=== PATIENT | female | born 1960 | race Caucasian/White ===

== ENCOUNTER 2025-02-06 13:54 | Outpatient (CLI) | payer MEDICARE, OTHER, SELFPAY | END 2025-02-06 13:55 | disposition home or self-care (01) | PROVIDERS: Visit Provider Physician Assistant Surgical | DX: R11.2 Nausea with vomiting, unspecified (principal); R68.89 Other general symptoms and signs; R19.7 Diarrhea, unspecified | CPT/HCPCS: 80076; 82150; 83690 ==

== ENCOUNTER 2025-02-09 18:00 | Emergency (ER) | payer MEDICARE, OTHER, SELFPAY ==
[2025-02-09] VITALS (8 sets, daily range): BP systolic 119–142; BP diastolic 45–79; PULSE 90–100; RESP 14–18; TEMP 36.7; O2SAT 88–93; BMI 26.6
--- OUTSIDE RECORDS SUMMARY | 2025-02-09 18:03 | XMS_ITS | Clinical Summary ---
Author Organization [email or web address] [facility] Address [address] [place] [address] Care Team Providers Care Cardiac Sonographer Name Role Phone Unavailable Primary Care Provider Unavailabl e Allergies Active AllergyReactionsCriticalityNoted BctvCmrorryhAvzmevuhtqnZnvfm36/02/2008 Medications No known medications Active Problems ProblemNoted DateDiagnosed DateMultiple sclerosis Immunizations ImmunizationAdministration DatesNext DueInfluenza, IIV3 (Age >=3 years) 12/14/2011,01/26/2011,12/30/2009,11/26/2008Td (Age >=7 Years)11/26/2008Tdap 11/03/2015 Family History Medical HistoryRelationNameCommentsOtherFathermultiple sclerosisCancerMother pancreaticHypertensionMotherRelationNameStatusCommentsFatherMother Social History Tobacco UseTypesPacks/DayYears UsedDateSmoking Tobacco: Every DayCigarettes Smokeless Tobacco: Never Tobacco Cessation:Ready to Q uit: Yes; Counseling Given: No Alcohol UseStandard Drinks/WeekCommentsYes0 (1 standard drink = 0.6 oz pure alcohol)not oftenSocial ConnectionsAnswerDate RecordedFrequency of Communication with Friends and FamilyNot on file02/26/2021Financial Resource StrainAnswerDate RecordedDifficulty of Paying Living ExpensesNot on file2Difficulty of Paying Living ExpensesNot on file02/26/2021CommentsNoSex and Gender InformationValueDate RecordedSex Assigned at BirthNot on fileLegal SexFemale 03/11/2012 6:59 AM CSTGender IdentityNot on fileSexual OrientationNot on file Last Filed Vital Signs Vital SignReadingTime TakenCommentsBlood Ffwbtnid571/6803 9:44 AM CDT Ykflg8403 9:44 AM IHRNyzsyzeviht87.4 ??C (99.3 ??F)05/21/2020 9:44 AM CDTRespiratory Wepi516012/18/2018 12:47 PM CDTOxygen Xwlamhptye17%05/21/2020 9:44 AM CDTInhaled Oxygen Concentration--Mvarem12.8 kg (193 lb 9.6 oz)05/21/2020 9:44 AM GYXUbudhx899 cm (5' 6.14)05/21/2020 9:44 AM CDTBody Mass Index31.11 05/21/2020 9:44 AM CDT Plan of Treatment DateTypeDepartmentCare Team (Latest Contact Info)Neyhvvqkmjr14/17/2025 7:25 AM CSTOffice Visit [facility] [address] [place] [address] Eelni Garcia PA [address] [place] [address] Health MaintenanceDue DateLast DoneCommentsHIV for age 15-Hepatitis C screening for age 18-Colonoscopy through age Pneumococcal series for age 50+ (1 of 1 - PCV)2009Zoster (shingles) series for age 50+ (1 of 2)2009Mammogram for age 45-75, 12/28/2009Depression screening for age 12+Pap test for age 21-, 01/25/2015, 12/27/2009Lipids for age 45-7502/05/2020 02/04/2015, 12/28/2009MI (ht and wt on same day) for age 18+05/21/2021 05/21/2020, 12/18/2018, 04/17/2016, Additional history existsDEXA/DXA scan for age 65+2024OVID-19 vaccine series ( - 2024- season)2024Influenza Vaccine (#1)/, 01/26/2011, 12/30/2009, Additional history existsTetanus /08/2015, 11/26/2008RSV vaccine for adults or (1 - 1-dose 75+ series)2034Hepatitis B series for 19+Aged OutNo longer eligible based on patient's age to complete this topic Procedures Procedure NamePriorityDate/TimeAssociated DiagnosisCommentsXR MAMMO BILAT SCREEN FFDM (IA)Qyqyokr8202/04/2015 8:13 AM SOFTWARE TECHNICAL LEAD Visit for screening mammogram LIPID PANEL W REFLEX MEASURED ZKQQcvtpyn12/10/2015 7:33 AM SOFTWARE TECHNICAL LEAD Screening cholesterol level CASH CHECKER THIN PREP PAP SCREEN ALJVIZKtwddkd63/30/2015 3:17 PM SOFTWARE TECHNICAL LEAD Screening for cervical cancer from Last 3 Months or Most Recently Relevant to Health Maintenance Results * XR MAMMO BILAT SCREEN FFDM (02/04/2015 8:13 AM SOFTWARE TECHNICAL LEAD)Anatomical RegionLaterality ModalityBREASTS, Breast Left, Breast RightBilateralMammographySpecimen (Source)Anatomical Location / LateralityCollection Method / VolumeCollection TimeReceived Time Impressions 02/04/2015 12:29 PM SOFTWARE TECHNICAL LEAD There is no radiographic evidence for malignancy. Recommend annual mammograms. A lay language report of this examination will be provided to the patient. MAMMOGRAM ASSESSMENT: ??ACR 2 Benign Narrative 02/04/2015 12:29 PM SOFTWARE TECHNICAL LEAD XR MAMMO BILAT SCREEN FFDM [G0202.0] CLINICAL HISTORY: ??This is an asymptomatic 54 y.o. patient. INDICATION FOR EXAM: Mammogram Screening. TECHNIQUE: CC & MLO views were obtained. This digital study was evaluated with the assistance of Computer-Aided Detection. COMPARISON FILMS: Yes 12/28/09 [facility] FINDINGS: ??Mammographically, the breast tissue is heterogeneously dense, which could obscure detection of small masses. ??No suspicious masses or microcalcifications. ??Benign appearing calcifications within both breasts. Authorizing ProviderResult TypeResult StatusTamera Antonio PAMAMMOFinal Result * (ABNORMAL) LIPID PANEL W REFLEX MEASURED LDL (02/04/2015 7:33 AM SOFTWARE TECHNICAL LEAD)Component ValueRef RangeTest MethodAnalysis TimePerformed AtPathologist Signature CHOLESTEROL,AOAWH168(H)100 - 199 mg/dL 02/04/2015 8:26 AM [facility]TRIGLYCERIDES111<150 mg/dL 02/04/2015 8:26 AM [facility]HDL BTSMUYGSWJU40>40 mg/dL 02/04/2015 8:26 AM [facility]ERNON-HDL OHPRTSNLJIH062(H) <145 mg/dl 02/04/2015 8:26 AM [facility]ENTERCHOL/HDL RATIO4.02<4.50 02/04/2015 8:26 AM [facility]ENTERLDL ITXMTTSTGAI594(H)<=130 mg/dL 02/04/2015 8:26 AM [facility]ENTERPATIENT STATUSFASTING 02/04/2015 8:26 AM [facility]ICSpec[facility] (Source)Anatomical Location / LateralityCollection Method / VolumeCollection TimeReceived Time Blood specimen (specimen)BLOOD SPECIMEN / UnknownVenipuncture / Unknown 02/04/2015 7:33 AM CST02/04/2015 7:33 AM SOFTWARE TECHNICAL LEAD Narrative Authorizing ProviderResult TypeResult StatusTamera Antonio PACHEMISTRY Final ResultPerforming OrganizationAddressCity/State/ZIP CodePhone Number [facility] [address] [place] [address], [place] [phone] * CASH CHECKER THIN PREP PAP SCREEN IMAGED (01/25/2015 3:17 PM SOFTWARE TECHNICAL LEAD)ComponentValueRef RangeTest MethodAnalysis TimePerformed AtPathologist SignatureGYN CYTOLOGYSee Anatomic Pathology case 01/30/2015 4:01 PM [facility]-CENTRAL LABORATORYSpecimen (Source)Anatomical Location / LateralityCollection Method / VolumeCollection TimeReceived TimeSpecimen (specimen)Non-Blood / Mcdpuvr1201/25/2015 3:17 PM SOFTWARE TECHNICAL LEAD 01/25/2015 3:17 PM SOFTWARE TECHNICAL LEAD Narrative Authorizing ProviderResult TypeResult StatusBridget Luisa RIVERA PATHOLOGY/CYTOLOGYFinal ResultPerforming OrganizationAddressCity/State/ZIP Code Phone Number [facility] [address] [place] [address], from Last 3 Months or Most Recently Relevant to [place] [address]
--- NOTE | 2025-02-09 19:32 | ED.GENADULT ---
HPI - General Adult General Chief complaint: Abdominal Pain Stated complaint: Gall stone pain Time Seen by Provider: 02/09/25 19:30 History of Present Illness HPI narrative: Pt reports being seen at on sunday for similar symptoms. Was dx with gallstones seen on abd xray. Symptoms have not improved. Pain on R side, nausea/ vomiting, dizzy . Rates pain currently 3/10 but this fluctuates. 64-year-old woman presenting to the emergency department Began having nausea vomiting and diarrhea with some abdominal discomfort about 10 days ago. Was seen in urgent care about 3 days ago and diagnosed with gastroenteritis and what sounds like incidental cholelithiasis on x-ray the abdomen. Received loperamide and has not had diarrhea after the initial dosings. Has continued to vomit and have right-sided abdominal pain. Has not measured fever. Does have Zofran available but does not sound as though this has been helpful. Has vomited twice since noon today. She is tearful noting that she just wants to feel better. This has been going on long enough. Screen negative for COVID influenza at that visit 3 days ago. Related Data Previous Rx's ?Medication ?Instructions ?Recorded loperamide 2 mg capsule See Rx Instructions PO Q6H PRN 02/06/25 loose stool #30 caps ondansetron 8 mg disintegrating 8 mg PO Q8H PRN nausea and 02/06/25 tablet vomiting #30 tabs famotidine 40 mg tablet 40 mg PO DAILY #30 tabs 02/10/25 metoclopramide HCl 10 mg tablet 10 mg PO QID PRN nausea and 02/10/25 vomiting #15 tabs Allergies Allergy/AdvReac Type Severity Reaction Status Date / Time clindamycin (From Cleocin) Allergy Verified 01/30/24 18:25 Review of Systems Status of ROS: Reports: 6 or more systems reviewed and unremarkable except as noted in History and below PFSH PFS Social History Smoking Status: Never smoker How often do you have a drink containing alcohol: never AUDIT-C Alcohol total score: 0 Non-prescribed substance use: denies use Exam Narrative: Exam Narrative: Pleasant. Calm. Tearful. Breathing easily. Lungs appear clear. Heart in elevated rate and regular rhythm. No murmur rub or gallop identified. Soft abdomen but with pain in the right upper quadrant right side and right lower abdomen. Extremities are well perfused. She is without edema. Skin with good turgor. Const: Vital Signs, click to edit/add: Vital Signs - 24 hr 02/09/25 18:18 02/09/25 20:02 02/09/25 20:49 Temperature 98.1 F Pulse Rate 94 100 Pulse Rate [Pulse Oximeter] 99 Respiratory Rate 16 18 Blood Pressure 129/79 122/71 Blood Pressure [Ri ght Upper Arm] 142/76 H Pulse Oximetry 93 92 93 Oxygen Delivery Me thod Room Air 02/09/25 21:02 02/09/25 21:32 02/09/25 22:02 Temperature Pulse Rate 96 94 97 Pulse Rate [Pulse Oximeter] Respiratory Rate 14 16 16 Blood Pressure 124/74 119/50 L 127/56 L Blood Pressure [Ri ght Upper Arm] Pulse Oximetry 92 92 88 Oxygen Delivery Me thod 02/09/25 22:32 02/09/25 22:33 02/10/25 00:00 Temperature Pulse Rate 98 90 Pulse Rate [Pulse Oximeter] Respiratory Rate 14 14 Blood Pressure 122/45 L Blood Pressure [Ri ght Upper Arm] 107/65 Pulse Oximetry 88 89 Oxygen Delivery Me thod Documenting provider has reviewed patient's vital signs: yes Course Vital Signs Vital signs: Initial Vital Signs Temperature 98.1 F 02/09/25 18:18 Temperature Source Temporal Artery Scan 02/09/25 18:18 Pulse Rate 99 02/09/25 18:18 Respiratory Rate 16 02/09/25 18:18 Blood Pressure 142/76 H 02/09/25 18:18 Blood Pressure Mean 98 02/09/25 18:18 Blood Pressure Position Sitting 02/09/25 18:18 Pulse Oximetry 93 02/09/25 18:18 Oxygen Delivery Method Room Air 02/09/25 18:18 Vital Signs Temperature 98.1 F 02/09/25 18:18 Pulse Rate 99 02/09/25 18:18 Respiratory Rate 16 02/09/25 18:18 Blood Pressure 142/76 H 02/09/25 18:18 Pulse Oximetry 93 02/09/25 18:18 Oxygen Delivery Method Room Air 02/09/25 18:18 Temperature 98.1 F 02/09/25 18:18 Pulse Rate 90 02/09/25 22:33 Respiratory Rate 14 02/10/25 00:00 Blood Pressure 107/65 02/10/25 00:00 Pulse Oximetry 89 02/09/25 22:33 Oxygen Delivery Method Room Air 02/09/25 18:18 Medications Administered Medications: Discontinued Medications Generic Name Dose Route Start Last Admin Trade Name Attilaq PRN Reason Stop Dose Admin Sodium Chloride 1,000 mls @ 1,000 mls/hr 02/09/25 19:37 02/09/25 19:50 0.9 % Sodium Chloride 1000 Ml IV 02/09/25 20:36 1,000 mls/hr .Q1H ONE Administration Ketorolac Tromethamine 30 mg 02/09/25 22:11 02/09/25 22:19 Ketorolac 30 Mg/Ml Inj IVP 02/09/25 22:12 30 mg ONCE ONE Administration Lidocaine 1 patch 02/09/25 22:11 02/09/25 22:35 Lidocaine 5% Patch TRANSDERMA 02/09/25 22:12 1 patch ONCE ONE Administration Protocol Ondansetron HCl 4 mg 02/09/25 22:11 02/09/25 22:18 Ondansetron 2 Mg/Ml Inj IVP 02/09/25 22:12 4 mg ONCE ONE Administration Medical Decision Making MDM Narrative Medical decision making narrative: Looks like might benefit from some IV hydration. Check standard labs. Since pain is in area of gallbladder with cholelithiasis noted on imaging 3 days ago, will request limited abdominal ultrasound. The flares of pain might represent biliary colic. Does not sound as though had much difficulty though prior to 10 days ago associated with vomiting and diarrheal illness. Labs are wholly reassuring. CRP mildly elevated at 1.9. White count that had been elevated 3 days ago has resolved. ALT minimally elevated at 36. Finally with normal lipase. INDICATION: Right upper quadrant pain, cholelithiasis COMPARISON: Abdominal radiograph 02/06/2025 TECHNIQUE: Her-scale and color Doppler ultrasound of the right upper quadrant. FINDINGS: Pancreas: The tail is obscured by bowel gas but the remainder is sonographically unremarkable. Liver: Normal hepatic echogenicity and normal echotexture. Normal liver size. The right lobe of the liver is elongated but overall the liver is not enlarged. No mass. Patent portal vein with normal directional flow. Gallbladder and bile ducts: There is a 2.5 centimeter gallstone. No gallbladder wall thickening or pericholecystic fluid. Negative sonographic Vizcarra`s sign. No intrahepatic biliary ductal dilatation. The common bile duct measures 6 mm, normal for age. RIGHT Kidney: Renal length: 10.5 cm Parenchyma: Normal thickness and normal echogenicity. Cyst: None Mass: None Calculi: None Urinary tract: Not dilated. Abdominal aorta: Normal. No aneurysm. Ascites: None. IMPRESSION: Cholelithiasis. No cholecystitis or biliary ductal dilatation. Dictated by Rhiannon Osullivan MD @ 02/09/2025 8:53:48 PM (Electronically Signed) On reassessment still feels ?crappy?. Unfortunately IV fluids have not all gone in as line got kinked. On repeat exam I become more convinced that area of most pain really is the right rib margin. This would not be inconsistent with repeated vomiting. However this combined with hypoxia without distress to 88% though admittedly in someone who smokes, will check rib views a chest x-ray for any other abnormality, effusion, low-lying pneumonia or pathologic fracture. I have ordered for ketorolac and more Zofran as this nausea seems to come and go for her. Place lidocaine patch on the right lower rib margin where most pain seems to be. Rib x-ray with chest independently reviewed by me looks to be without acute abnormality. Normal mediastinum without pneumothorax cardiomegaly INDICATION: Right low anterior rib pain and mild hypoxia TECHNIQUE: Chest radiograph, Rib radiographs 4 views right COMPARISON: None FINDINGS: The sensitivity and specificity of the exam are moderately limited by the patient`s body habitus. Mediastinum: The mediastinum is normal in appearance. The heart silhouette is normal in size and morphology. Lung: Both lungs are unremarkable in appearance. No sign of pleural effusion seen. No pneumothorax is identified. Ribs and bones: No definite acute rib fractures are identified in the visualized ribs. The remaining osseous structures are unremarkable for age. Soft tissue: Unremarkable. IMPRESSION: 1. No acute cardiopulmonary disease is seen. No acute rib injuries noted. Dictated by: Kaiden Oliva MD @ 02/09/2025 23:38:40 On reassessment is definitely improved. Pain still present but much better. Seems more relaxed about this. Feels she will be able to sleep at home now. See patient discharge plan for further discussion This rib edge pain can be quite painful. I am not sure if this is solely related to vomiting or whether in the setting of a likely viral illness earlier, you have now developed costochondritis. Am sending in a prescription of famotidine, an acid curator of photography and prints hopefully to calm your stomach somewhat; I'd like you to take this for 2 weeks. Also an alternate anti-nausea medication called Reglan. For the rib area pain, as discussed, preferred, can take 400 mg of ibuprofen 3 times daily over the next 4-5 days. Definitely would take this with a little bit of food. Also if this lidocaine patch is helpful, you can purchase more [id number]. Will probably though need to advance your diet slowly over the next 24-36 hours. Diluted juices, soup broth, rice, crackers, toast. If you began to have left upper or epigastric abdominal pain response to certain foods particularly fatty, this would warrant repeat evaluation and possible surgical consult. At this time I do not think that that gallstone we have found is causing trouble for you. Medical Records Medical records reviewed: Yes I reviewed the patient's medical records Lab Data Lab results reviewed: Yes I reviewed the patient's lab results Labs: Lab Results 02/09/25 Range/Units 19:50 WBC 7.87 (4.50-11.00) K/uL RBC 4.92 (4.00-5.20) m/uL Hgb 13.7 (12.0-16.0) gm/dL Hct 42.9 (33.0-51.0) % MCV 87 (80-100) fL MCH 28 (26-34) pg MCHC 32 (32-36) gm/dL RDW Coeff of Aubrey 11.6 (11.5-15.5) % Plt Count 253 (140-440) K/uL Neut % (Auto) 48.9 (42.0-72.0) % Lymph % (Auto) 39.1 (20-44) % Valley % (Auto) 9.9 (0.0-11.0) % Eos % (Auto) 1.4 (0.0-7.0) % Baso % (Auto) 0.3 (0.0-3.0) % Neut # (Auto) 3.85 (1.7-7.0) K/uL Lymph # (Auto) 3.08 H (0.90-2.90) K/uL Valley # (Auto) 0.80 (0.00-0.90) K/UL Eos # (Auto) 0.11 (0.00-0.50) K/uL Baso # (Auto) 0.02 (0.00-0.30) K/uL Abs Immat Gran (auto) 0.03 (0.00-0.30) K/uL Imm/Tot Granulo (auto) 0.4 % Sodium 136 (135-149) mmol/L Potassium 3.7 (3.6-5.1) mmol/L Chloride 101 (96-114) mmol/L Carbon Dioxide 30 (20-32) mmol/L Anion Gap 5 L (7-15) mEq/L BUN 13 (7-30) mg/dL Creatinine 0.6 (0.5-1.5) mg/dL Estimated Creat Clear 52.51 Estimated GFR 100 ml/min Glucose 112 (60-115) mg/dL Calcium 9.4 (8.4-10.6) mg/dL Total Bilirubin 0.9 (0.1-1.5) mg/dL Direct Bilirubin 0.2 (0.0-0.5) mg/dL AST 28 (12-35) U/L ALT 36 H (4-35) U/L Alkaline Phosphatase 93 (40-150) U/L C-Reactive Protein 1.9 H (0.5-1.0) mg/dL Total Protein 6.5 (6.0-8.3) g/dL Albumin 3.6 (3.3-5.0) g/dL Lipase 192 (23-300) U/L Discharge Plan Discharge Clinical Impression: Rib pain on right side, Cholelithiasis, Vomiting Patient Disposition: Home w/ Parent or Adult Condition: Improved Additional Instructions: This rib edge pain can be quite painful. I am not sure if this is solely related to vomiting or whether in the setting of a likely viral illness earlier, you have now developed costochondritis. Am sending in a prescription of famotidine, an acid curator of photography and prints hopefully to calm your stomach somewhat; I'd like you to take this for 2 weeks. Also an alternate anti-nausea medication called Reglan. For the rib area pain, as discussed, preferred, can take 400 mg of ibuprofen 3 times daily over the next 4-5 days. Definitely would take this with a little bit of food. Also if this lidocaine patch is helpful, you can purchase more [id number]. Will probably though need to advance your diet slowly over the next 24-36 hours. Diluted juices, soup broth, rice, crackers, toast. If you began to have left upper or epigastric abdominal pain response to certain foods particularly fatty, this would warrant repeat evaluation and possible surgical consult. At this time I do not think that that gallstone we have found is causing trouble for you. Prescriptions: New famotidine 40 mg tablet 40 mg PO DAILY Qty: 30 0RF metoclopramide HCl 10 mg tablet 10 mg PO QID PRN (Reason: nausea and vomiting) Qty: 15 0RF No Action ondansetron 8 mg tablet,disintegrating 8 mg PO Q8H PRN (Reason: nausea and vomiting) Qty: 30 0RF loperamide 2 mg capsule See Rx Instructions PO Q6H MDD 16 mg/day (8 tablets) PRN (Reason: loose stool) Qty: 30 0RF Rx Instructions: 4 mg (2 caps) PO x1, then 2 mg (1 cap) PO x1 after each loose stool Follow Up/Referrals: Provider,Not a Local [Primary Care Provider, Family Practice] Stand Alone Forms: MyHealth Info Instructions
--- NOTE | 2025-02-09 19:33 | CRLHL7_ITS ---
For Patients: As a result of the Century Cures Act, medical imaging exams and procedure reports are released immediately into your electronic medical record. You may view this report before your referring provider. If you have questions, please contact your health care provider. INDICATION: Right upper quadrant pain, cholelithiasis COMPARISON: Abdominal radiograph 02/06/2025 TECHNIQUE: Her-scale and color Doppler ultrasound of the right upper quadrant. FINDINGS: Pancreas: The tail is obscured by bowel gas but the remainder is sonographically unremarkable. Liver: Normal hepatic echogenicity and normal echotexture. Normal liver size. The right lobe of the liver is elongated but overall the liver is not enlarged. No mass. Patent portal vein with normal directional flow. Gallbladder and bile ducts: There is a 2.5 centimeter gallstone. No gallbladder wall thickening or pericholecystic fluid. Negative sonographic Vizcarra`s sign. No intrahepatic biliary ductal dilatation. The common bile duct measures 6 mm, normal for age. RIGHT Kidney: Renal length: 10.5 cm Parenchyma: Normal thickness and normal echogenicity. Cyst: None Mass: None Calculi: None Urinary tract: Not dilated. Abdominal aorta: Normal. No aneurysm. Ascites: None. IMPRESSION: Cholelithiasis. No cholecystitis or biliary ductal dilatation. Dictated by Rhiannon Osullivan MD @ 02/09/2025 8:53:48 PM (Electronically Signed)
[2025-02-09 20:00] LABS: Hematocrit* 42.9 % (33.0-51.0); Hemoglobin* 13.7 gm/dL (12.0-16.0); Immature Granulocytes Abs Auto 0.03 K/uL (0.00-0.30); Immature Granulocytes Pct Auto 0.4 %; Lymphocytes Absolute Auto 3.08 K/uL (0.90-2.90); Mean Corpuscular HGB Conc 32 gm/dL (32-36); Mean Corpuscular Hemoglobin 28 pg (26-34); Mean Corpuscular Volume 87 fL (80-100); RDW Coefficient of Variation % 11.6 % (11.5-15.5); Red Blood Count* 4.92 m/uL (4.00-5.20); White Blood Count* 7.87 K/uL (4.50-11.00)
[2025-02-09 20:13] LABS: Slide Review Reflex No
[2025-02-09 20:56] LABS: Anion Gap 5 mEq/L (7-15); Blood Urea Nitrogen* 13 mg/dL (7-30); Calcium* 9.4 mg/dL (8.4-10.6); Carbon Dioxide* 30 mmol/L (20-32); Chloride* 101 mmol/L (96-114); Creatinine* 0.6 mg/dL (0.5-1.5); Est. Creatinine Clearance* 52.51; Estimated Glomerular Filt Rate 100 ml/min; Glucose* 112 mg/dL (60-115); Potassium* 3.7 mmol/L (3.6-5.1); Sodium* 136 mmol/L (135-149); Total Protein* 6.5 g/dL (6.0-8.3)
[2025-02-09 20:57] LABS: Alanine Aminotransferase* 36 U/L (4-35); Albumin* 3.6 g/dL (3.3-5.0); Alkaline Phosphatase* 93 U/L (40-150); Aspartate Amino Transferase* 28 U/L (12-35); Bilirubin Direct* 0.2 mg/dL (0.0-0.5); Bilirubin Total* 0.9 mg/dL (0.1-1.5)
[2025-02-09] MEDS: ONDANSETRON 2 MG/ML inj 4 MG IVP (22:18)
--- NOTE | 2025-02-09 22:25 | CRLHL7_ITS ---
For Patients: As a result of the Cures Act, medical imaging exams and procedure reports are released immediately into your electronic medical record. You may view this report before your referring provider. If you have questions, please contact your health care provider. INDICATION: Right low anterior rib pain and mild hypoxia TECHNIQUE: Chest radiograph, Rib radiographs 4 views right COMPARISON: None FINDINGS: The sensitivity and specificity of the exam are moderately limited by the patient`s body habitus. Mediastinum: The mediastinum is normal in appearance. The heart silhouette is normal in size and morphology. Lung: Both lungs are unremarkable in appearance. No sign of pleural effusion seen. No pneumothorax is identified. Ribs and bones: No definite acute rib fractures are identified in the visualized ribs. The remaining osseous structures are unremarkable for age. Soft tissue: Unremarkable. IMPRESSION: 1. No acute cardiopulmonary disease is seen. No acute rib injuries noted. Dictated by: Kaiden Oliva MD @ 02/09/2025 23:38:40 (Electronically Signed)
[2025-02-09] MEDS: LIDOCAINE 5% PATCH 1 PATCH TRANSDERMA (22:35)
[2025-02-10] VITALS: BP 107/65; RESP 14
== END 2025-02-10 00:17 | disposition home or self-care (01) ==
PROVIDERS: Emergency Provider Family Medicine
DX: K80.20 Calculus of gallbladder without cholecystitis without obstruction (principal); R07.89 Other chest pain
CPT/HCPCS: 36415; 71101; 76705; 80048; 80076; 83690; 85025; 86140; 96374; 96375; 99284; A9270; J1885; J2405; J7030

== ENCOUNTER 2025-02-18 09:25 | Day surgery (SDC) | payer MEDICARE, OTHER, SELFPAY ==
[2025-02-18] VITALS (31 sets, daily range): BP systolic 99–145; BP diastolic 37–68; PULSE 77–106; RESP 16–21; TEMP 36.4–36.7; O2SAT 90–97; BMI 26.2
--- NOTE | 2025-02-18 09:52 | PM.GSHP ---
History of Present Illness History of Present Illness Date Seen: 02/18/25 Chief complaint: Lap Mikayla Narrative: Karly Hope is a 64 year old female was seen in clinic on Sunday for evaluation of recent episode of right upper quadrant pain, vomiting and diarrhea. Patient had those symptoms for about 2 weeks. She was seen in urgent care and ER. She denied anyone sick at home. She stated that every time she ate, she vomited. Patient has pain in the right upper quadrant was described as dull and irritating. Patient has not been eating much in the last 2 weeks because she was afraid that eating would cause vomiting. Patient's emergency room visit showed normal WBC and normal liver function tests with the exception of elevated ALT. Her gallbladder ultrasound showed a large stone in the gallbladder with no mal gallbladder wall thickness and no pericholecystic fluid. Her common bile duct was measured at 6 mm. On clinical exam patient had tenderness to palpation in the right upper quadrant but negative Vizcarra sign. Since patient's symptoms were not classical for gallbladder disease, an abdominal CT was recommended. Patient underwent abdominal CT scan that showed distended gallbladder with a large stone near the gallbladder neck. There was no other acute abnormalities that could discuss explain right upper quadrant pain. There was no dilated loops of small intestine or dilated large intestine. These CT findings were communicated with the patient over the phone and laparoscopic cholecystectomy was recommended. Patient was then referred for direct admit to the hospital for surgery. [facility] Medical History History of elective section ?Z98.891 - History of uterine scar from previous surgery (ICD-10) Surgical History History of bunionectomy ?Z98.890 - Other specified postprocedural states (ICD-10) Social History What is your current living situation?: I presently have a place to live Problems where you live: no known problems Problems where you live details: no known problems In the past 12 months, utilities in danger of being shut off: no In past 12 months, lack of transportation kept you from medical appts, meetings, work, or getting things needed for daily living: no In the past 12 mos, have been you worried that your food would run out before you had money to buy more?: never true In the past 12 mos, the food you bought just didn't last and you didn't have money to buy more?: never true Highest level of school completed/degree received: some college, no degree Smoking Status: Current every day smoker What tobacco products do you use: cigarettes Second hand tobacco smoke exposure: Yes How often do you have a drink containing alcohol: never AUDIT-C Alcohol total score: 0 Non-prescribed substance use: denies use Caffeine: Yes How often does anyone, including family, friends and others, physically hurt you: never How often does anyone, including family, friends and others, insult or talk down to you: never How often does anyone, including family, friends and others, threaten you with harm: never How often does anyone, including family, friends and others, scream or curse at you: never service: No Meds Home Medications and Allergies Home Medications ?Medication ?Instructions ?Recorded ?Confirmed ?Type loperamide 2 mg capsule See Rx Instructions PO Q6H PRN 02/06/25 02/18/25 Rx loose stool #30 caps ondansetron 8 mg disintegrating 8 mg PO Q8H PRN nausea and 02/06/25 02/18/25 Rx tablet vomiting #30 tabs famotidine 40 mg tablet 40 mg PO DAILY #30 tabs 02/10/25 02/18/25 Rx metoclopramide HCl 10 mg tablet 10 mg PO QID PRN nausea and 02/10/25 02/18/25 Rx vomiting #15 tabs Allergies Allergy/AdvReac Type Severity Reaction Status Date / Time clindamycin (From Cleocin) Allergy Verified 01/30/24 18:25 Exam Narrative: Exam Narrative: General appearance: Alert, cooperative, and in no distress Pulmonary: Chest symmetric, lungs clear bilaterally Cardiovascular Heart: Regular rate and rhythm, S1, S2, no murmurs/rubs/gallops Gastrointestinal Abdominal: soft, not distended, tender to palpation in the right upper quadrant with equivocal Vizcarra sign. Skin: Normal skin color, texture, and turgor. No rashes or lesions. Psychiatric: Alert, cooperative, normal affect. Progress Note:A&P Assessment and plan (1) Cholecystitis, acute: Status: Acute Plan 64-year-old female presents as a direct admit for laparoscopic cholecystectomy for possible acute cholecystitis. I discussed with the patient my clinical findings. We talked about her CT findings again. The procedure of laparoscopic cholecystectomy was discussed with the patient. The risks associated procedure including infection, bleeding, injury to intra-abdominal organs, and injury to the common bile duct were all discussed with the patient, and she agreed to proceed.
[2025-02-18] MEDS: LACTATED RINGERS 1000 ML 1,000 ML 100 ML IV (11:23)
--- NOTE | 2025-02-18 14:38 | PC.NURSE ---
End of shift: patient off unit at 1430 for surgery to remove Gallbladder. Patients VSS, on RA. NPO since midnight. IV in Right AC patent and running LR @100mls/hr. Patient denies N/V/SOB, patient hesitant to take pain meds and reports tolerating pain.
[2025-02-18] MEDS: PIPERACILLIN/TAZOBACTAM 3.375 GM INJ IVPB (14:48)
--- NOTE | 2025-02-18 15:48 | P.GSOP_ITS ---
Operative Note Date of procedure: 02/18/25 Pre-op diagnosis: 1. Biliary colic. 2. Possible acute cholecystitis. Post-op diagnosis: 1. Cholelithiasis. 2. Acute cholecystitis. Type of Procedure: 1. Laparoscopic cholecystectomy. Indications: 64-year-old female was seen in clinic with ongoing right upper quadrant pain, vomiting, and diarrhea. Patient's vomiting was improving and diarrhea was improving but the pain in the right upper quadrant with persistent and severe. Patient was seen in urgent care and then emergency room for evaluation of this pain. She was found to have normal WBC and her bilirubin, lipase, and alkaline phosphatase were normal. An abdominal ultrasound was obtained that showed a large stone in the gallbladder, the gallbladder wall was normal in size and the common bile duct was normal in size. Patient continued to have ongoing pain and presented to surgery Clinic. On clinical exam patient had tenderness to palpation in the right upper quadrant with negative Vizcarra sign in clinic. Patient was recommended to have an abdominal CT scan which was obtained. Abdominal CT showed a distended gallbladder with a large stone near the gallbladder neck. There was no pericholecystic fluid. There were no other acute abnormalities that could explain her right upper quadrant pain. Given these findings, patient was recommended to undergo laparoscopic cholecystectomy. Patient was then seen at the hospital on medical-surgical floor. On clinical exam she had tenderness to palpation in the right upper quadrant with equivocal Vizcarra sign. The procedure of laparoscopic cholecystectomy was discussed with the patient. The risks associated procedure including infection, bleeding, injury to intra-abdominal organs, and injury to the common bile duct were all discussed with the patient, and she agreed to proceed. Procedure Description: After discussing the risks and benefits of the procedure, the patient signed informed consent.? The operative site was marked and the patient was brought to the operating room and placed on the operating table in supine position.? Care was taken to pad the patient's pressure points.?? The patient was then intubated by anesthesia.?? The operative site was then prepped and draped in the usual sterile fashion.? A time-out was then performed. A 5-mm laparoscopy port was placed in the left upper quadrant guided by a 5-mm laparoscope placed into a translucent trochar.~ Passage through the layers of the abdominal wall was visualized with the laparoscope.~ A pneumoperitoneum was established. A 0-degree 5-mm laparoscope was advanced into the abdomen. The abdomen was briefly surveyed, and infraumbilical hernia defect was noted with omental fat incarcerated in the hernia. Supraumbilical fascia was thinned out.. A 10-mm port were placed 2 cm above the umbilicus to be away from her hernia defect. Two more 5 mm ports were placed on the right under direct visualization by laparoscope. The camera was then changed to 10 mm 30-degree scope and placed into the abdomen through the 10 mm port. The left upper quadrant port entrance was examined and no injury to intra-abdominal organs was identified. The gallbladder was identified. The gallbladder was distended and 50 mL syringe and laparoscopic needle were used to decompress the gallbladder. 50 mL of green bile were suctioned out. This was not sent to pathology. The fundus grasped and retracted cephalad. Omentum was overlying the infundibulum and these adhesions were taken down with hook cautery. The duodenum was adherent to the infundibulum with with P adhesions. These adhesions were taken down with Metzenbaum scissors with care taken not to injure the duodenum. The duodenum was then reflected medially. The infundibulum was grasped and retracted laterally, exposing the peritoneum overlying the triangle of [place]ot. This was then divided and exposed in a blunt fashion and with hook cautery. Common bile duct was not identified but care was taken not to injure it. The cystic duct was clearly identified and bluntly dissected circumferentially. Cystic artery was identified and tissues around it were dissected off. The node of [place] was adjacent to the cystic artery. The vasculature just distal to the node of [place] that was going into the g allbladder was clipped with 5 mm clips and divided between the clips with scissors. The cystic artery was just medial to the node of [place] and cystic duct. The cystic artery was then clipped with 2 5 mm clips on the patient's side and a single clip on the specimen side and divided with scissors between the clips. The cystic duct was clearly going into the gallbladder. The cystic duct was normal in size. It was doubly ligated with surgical clips on the patient's side and singly clipped on the gallbladder side and divided. The gallbladder was dissected from the liver bed in retrograde fashion using hookcautery. An opening was created in the gallbladder from pressure from grasping. Bile spilled into the abdominal cavity and that was suctioned out. No stones were seen. When the gallbladder was removed from the gallbladder fossa, it was placed into an Endo-Catch bag and removed through the supraumbilical incision. Surgical site was examined for bleeding. No bleeding was seen in the surgical field. The fascia of the supraumbilical incision was then closed with 0-0 vicryl using Jorge Lester needle under direct visualization. Pneumoperitoneum was completely reduced after viewing removal of the trocars under direct vision. The skin was then closed with 4-0 monocryl and steristrips were applied. Instrument, sponge, and needle counts were correct at closure and at the con clusion of the case. The patient was transferred to PACU in stable condition. Findings: Distended gallbladder with mild inflammation, small infraumbilical hernia with omental fat incarcerated in the hernia. The supraumbilical fascia was thinned out. Anesthesia: GETA Surgeon: Polina Rodríguez MD Estimated blood loss (mL): 5 Specimen: Gallbladder Condition: stable Disposition: PACU
--- NOTE | 2025-02-18 15:55 | P.ANES_ITS ---
Anesthesia Charges Start Date/Time Anesthesia Start Date: 02/18/25 Anesthesia Start Time: 14:34 Stop Date/Time Anesthesia Stop Date: 02/18/25 Anesthesia Stop Time: 15:52 Coding CPT Codes CPT Codes: ANESTH SURG UPPER ABDOMEN - 61323 ([id number]) P2 - PATIENT W/MILD SYST DISEASE, QZ - TEXTILE COLORIST DYER SVC W/O AERONAUTICAL DESIGN ENGINEER BY
--- NOTE | 2025-02-18 15:55 | W.ANESCHARGE ---
Anesthesia Charges Start Date/Time Anesthesia Start Date: 02/18/25 Anesthesia Start Time: 14:34 Stop Date/Time Anesthesia Stop Date: 02/18/25 Anesthesia Stop Time: 15:52 Coding CPT Codes CPT Codes: ANESTH SURG UPPER ABDOMEN - 89816 ([id number]) P2 - PATIENT W/MILD SYST DISEASE, QZ - HOTEL CLERK SVC W/O ORGAN PIPE FINISHER BY
[2025-02-18] MEDS: HYDROCODONE-ACETAMIN 5-325 MG 1 TAB PO (17:08)
[2025-02-18] MEDS: LACTATED RINGERS 1000 ML 1,000 ML 30 ML IV (17:32)
--- NOTE | 2025-02-18 22:09 | PC.NURSE ---
Patient to room after lap Cholecystectomy @ 1645. 4 lap sites are to abdomen clean, dry, and intact. Patient Currently receiving one Liter O2 via NC, Saturations 93%. PIV in Right AC patent with 100 LR infusing. Patient utilizing prn medications and ice for pain. Patient denies nausea and is tolerating regular diet. Surgical vital signs completed as ordered.
[2025-02-19 03:00] VITALS: BP 123/51; PULSE 90; RESP 18; TEMP 36.8; O2SAT 90
[2025-02-19] MEDS: LACTATED RINGERS 1000 ML 1,000 ML 100 ML IV (05:39)
--- NOTE | 2025-02-19 07:44 | PC.NURSE ---
Pt pleasant,?alert?and oriented.??Weaned of o2, tolerated well.?Tolerating?a regular?diet. Up with?SBA.?Pain tolerated?at?04/07.?Pt in bed, appears to be resting, call light within reach.?
[2025-02-19 08:00] VITALS: RESP 18; O2SAT 93
[2025-02-19 08:10] VITALS: BP 120/56; PULSE 94; TEMP 36.8; O2SAT 93
--- NOTE | 2025-02-19 12:27 | PC.NURSE ---
The patient ambulated off the unit. 4 lap sites to abdomen CDI with steri strips. The patient reports mild pain that is tolerable. All discharge/post op instructions were reviewed. All belongings were sent home with the patient. Nimisha BUSTAMANTE BSN
--- NOTE | 2025-02-19 23:14 | PM.ANPOST ---
Post Anesthesia Note Post Anesthesia Note Patient seen: Inpatient Respiratory Status: adequate Cardiovascular Status: adequate Mental Status: baseline Pain: adequate Temp: baseline Anesthetic awareness: N/A Complications: none Follow care: none
--- NOTE | 2025-02-20 15:15 | P.DS_ITS ---
DS: Providers Provider Date Seen: 02/18/25 Primary care physician: Eleni Garcia PA-C Attending Physician on discharge: Polina Rodríguez MD Date of Discharge: 02/19/25 DS: Diagnosis Discharge Diagnosis (1) S/P laparoscopic cholecystectomy: Status: Acute DS: Summary Hospital Course Hospital Course: Patient was admitted overnight after she underwent laparoscopic cholecystectomy. Patient continued to be on low does oxygen by nasal cannula and was observed overnight. She was weaned off oxygen. On the day of discharge her pain was controlled with p.o. medications. Time Spent with Patient Time attestation: Total time spent providing and/or coordinating discharge services: Exam Narrative: Exam Narrative: not personally performed on the day of discharge Discharge Plan Discharge Disposition: Home w/ Parent or Adult Discharging Surgeon: Polina Rodríguez Follow-Up Appointment: 2 weeks [facility] Prescriptions: New hydrocodone-acetaminophen 5-325 mg Tablet 1 tab PO Q6H PRN (Reason: Pain) Qty: 20 0RF No Action ondansetron 8 mg tablet,disintegrating 8 mg PO Q8H PRN (Reason: nausea and vomiting) Qty: 30 0RF loperamide 2 mg capsule See Rx Instructions PO Q6H MDD 16 mg/day (8 tablets) PRN (Reason: loose stool) Qty: 30 0RF Rx Instructions: 4 mg (2 caps) PO x1, then 2 mg (1 cap) PO x1 after each loose stool famotidine 40 mg tablet 40 mg PO DAILY Qty: 30 0RF metoclopramide HCl 10 mg tablet 10 mg PO QID PRN (Reason: nausea and vomiting) Qty: 15 0RF Activity Level: No strenuous activity Activity Detail: No strenuous activity or lifting more than 15-20 lbs for 4-6 weeks. Take laxative such as MiraLax every other day to prevent constipation. If you continue having loose stools, you can hold off on MiraLax. Leave Steri-Strips on for the next 7-10 days. Okay to shower in 24 hours after surgery. Avoid swimming or submerging incision under water (except for showering) for 2 weeks. Discharge Diet: Regular Patient Instructions: Oxycodone/Acetaminophen (By mouth) (Percocet), General Anesthesia (DC), NH+C Post-Operative Instructions: Laparoscopic Cholecystectomy Follow-up: Polina Rodríguez MD [Staff Physician, General Surgery] - 03/09/25 2:00 pm Referral Note: [facility] for hospital follow-up. Discharge Orders: Discharge Order (Routine); Ordered 02/19/25 Ordered By: Polina Rodríguez
== END 2025-02-19 10:45 | disposition home or self-care (01) ==
LOC: SS 09:28 → MEDSURG 09:39
PROVIDERS: PCP Student in an Organized Health Care Education/Training Program; Visit Provider Surgery
PROC: 0FT44ZZ Resection of Gallbladder, Percutaneous Endoscopic Approach (ICD-10-PCS; CPT 47562; principal; 2025-02-18 12:00)
DX: K80.00 Calculus of gallbladder with acute cholecystitis without obstruction (principal); K42.0 Umbilical hernia with obstruction, without gangrene; G89.18 Other acute postprocedural pain
CPT/HCPCS: 47562; 00790; A9270; J0330; J1100; J1171; J1200; J2405; J2543; J2704; J2710; J3010; J3490; J7120

== ENCOUNTER 2025-02-24 06:47 | Emergency (ER) | payer MEDICARE, OTHER, SELFPAY ==
--- OUTSIDE RECORDS SUMMARY | 2025-02-24 06:49 | XMS_ITS | Clinical Summary ---
Author Organization [employer] [facility] Address [address] [place] [address] Care Team Providers Care Social Media Content Manager Name Role Phone Eleni Garcia Primary Care Provider [phone] Allergies Active AllergyReactionsCriticalityNoted OcnyEzzlvvcdPhrgfbvwkbyXxyzl40/02/2008 Medications MedicationSigDispense QuantityRefillsLast FilledStart DateEnd DateStatus loperamide (IMODIUM) 2 mg capsule 5Active famotidine (PEPCID) 40 mg tablet Take 1 Tablet by mouth once daily.5Active metoclopramide HCl (REGLAN) 10 mg tablet TAKE 1 TABLET BY MOUTH FOUR TIMES DAILY NEEDED FOR NAUSEA OR VOMITING 5Active ondansetron (ZOFRAN ODT) [address] 8 mg on the tongue every 8 hours if needed for Nausea/Vomiting.02/06/2025 Active Active Problems ProblemNoted DateDiagnosed DateMultiple sclerosis Encounters DateTypeDepartmentCare QwgmKdoxsbreygb33/24/2025 6:00 AM CSTOffice Visit [facility] [address] [place] [address] Polina Rodríguez MD Surgery Heklnbwie31/24/2025Orders Only [facility] SERVICES Scanner 1 scan: (1-Ord) [facility], LAPAROSCOPIC CHOLECYSTECTOMY , 02/18/2025 02/18/2025Lab Requisition [facility] [phone] Polina Rodríguez MD 02/18/20252739Xymtcz46/24/2025Results Follow-Up [facility] [address] [facility] [address] Polina Rodríguez MD 02/18/2025Orders Only [facility] [address] [place] [address] Vinnie Vega LPN <No scans attached>02/17/2025 7:30 AM CSTAncillary Procedure [address] [place] [address] 02/17/2025 7:15 AM CSTOrders Only [address] [place] [address] [place] <No scans attached>02/16/2025 3:00 PM CSTOffice Visit [facility] [address] [place] [address] Polina Rodríguez MD Consult (Calculus of gallbladder)02/16/20255759Xhmfcr37/19/2025Results Follow-Up [facility] [address] [place] [address] Eleni Garcia PA 02/12/20250821Sjfirk65/17/2025 7:25 AM CSTOffice Visit [address] [place] [address] Eleni Garcia PA Abdominal Pain (2 weeks of pain, vomiting, and dizziness. )02/10/2025Travelfrom Last 3 Months Immunizations ImmunizationAdministration DatesNext DueInfluenza, IIV3 (Age >=3 years) 12/14/2011,01/26/2011,12/30/2009,11/26/2008Td (Age >=7 Years)11/26/2008Tdap 11/03/2015 Family History Medical HistoryRelationNameCommentsOtherFathermultiple sclerosisCancerMother pancreaticHypertensionMotherRelationNameStatusCommentsFatherMother Social History Tobacco UseTypesPacks/DayYears UsedDateSmoking Tobacco: Every DayCigarettes Smokeless Tobacco: Never Tobacco Cessation:Ready to Q uit: No; Counseling Given: Not Answered Alcohol UseStandard Drinks/WeekCommentsYes0 (1 standard drink = 0.6 oz pure alcohol)not oftenSocial ConnectionsAnswerDate RecordedDo you often feel lonely or isolated from those around you?lcohol UseAnswerDate RecordedHow often do you have a drink containing alcohol?How many drinks containing alcohol do you have on a typical day when you are drinking?0 02/11/2025How often do you have five or more drinks on one occasion? Financial Resource StrainAnswerDate RecordedDifficulty of Paying Living Expenses Difficulty of Paying Living ExpensesNot on file02/10/2025Food InsecurityAnswerDate RecordedDo you worry your food will run out before you are able to buy more?Transportation NeedsAnswerDate RecordedDoes lack of transportation keep you from medical appointments?Does lack of transportation keep you from work, meetings or getting things that you need?1 02/10/2025Housing StabilityAnswerDate RecordedWhat is your housing situation today?UtilitiesAnswerDate RecordedDo you have trouble paying for utilities (for example, heat, electricity, water, phone)? CommentsNoSex and Gender InformationValueDate RecordedSex Assigned at BirthNot on fileLegal TbfMtdibb87/14/2013 6:59 AM CSTGender IdentityNot on fileSexual OrientationNot on file Last Filed Vital Signs Vital SignReadingTime TakenCommentsBlood Yjdbqcsb185/7002/16/2025 3:03 PM HAND PLEATER Wxajn48428/22/2025 3:03 PM RXRRjdcjmiuyrb02.4 ??C (99.3 ??F)05/21/2020 9:44 AM CDTRespiratory Hgix0265 12:47 PM CDTOxygen Kkjvqyktjr59%02/16/2025 3:03 PM CSTInhaled Oxygen Concentration--Mcunhg01 kg (163 lb 1.6 oz)02/16/2025 3:03 PM JPLVhxrse460 cm (5' 6.14)05/21/2020 9:44 AM CDTBody Mass Index26.21 05/21/2020 9:44 AM CDT Plan of Treatment DateTypeDepartmentCare Team (Latest Contact Info)Yvqhfhszwpk10/12/2026 2:00 PM CSTOffice Visit [facility] [address] [facility] [address] Polina Rodríguez MD [address] [place] [address] Health MaintenanceDue DateLast DoneCommentsHIV for age 15-Hepatitis C screening for age 18-7904/13/1977Pneumococcal series for age 50+ (1 of 2 - PCV)1978Colonoscopy through age Zoster (shingles) series for age 50+ (1 of 2)2009Mammogram for age 40-75/, 12/28/2009Depression screening for age 12+Lipids for age 45-75, 12/28/2009MI (ht and wt on same day) for age 18+ , 12/18/2018, 04/17/2016, Additional history existsDEXA/DXA scan for age 65+2024Medicare Wellness for age 65+2024OVID-19 vaccine series ( - 2024- season)2024Influenza Vaccine (#1)2024 12/14/2011, 01/26/2011, 12/30/2009, Additional history existsTetanus booster /08/2015, 11/26/2008RSV vaccine for adults or (1 - 1-dose 75+ series)2034Pap test for age 21-03Bwexwlfelikl56/30/2015, 01/25/2015, 12/27/2009Hepatitis B series for 19+Aged OutNo longer eligible based on patient's age to complete this topic Procedures Procedure NamePriorityDate/TimeAssociated DiagnosisCommentsLAB TRACKING EVENT Oinnxrj1802/18/2025 12:00 PM CSTSCAN-OPERATIVE/PROCEDURE EGQLBK3902/18/2025 12:[address] ABDOMEN PELVIS WASAP104/20/2024 7:47 AM HAND PLEATER Abdominal pain, RUQ (right upper quadrant) CREATININE,RAIMYAxmypks74/23/2025 7:25 AM HAND PLEATER Observation or evaluation for suspected condition URINE BHYOZIXNavqspl14/17/2025 8:05 AM HAND PLEATER Urine malodor URINE CULTURE INDICATED (QUEST REFLEX ONLY)Udvzdue1002/11/2025 8:05 AM HAND PLEATER Urine malodor URINALYSIS CISHCHORNYHLrfifer25/17/2025 8:05 AM HAND PLEATER Urine malodor UA DIP W/REFLEX TO CULTURE (QUEST)Jezrkxy7402/11/2025 8:05 AM HAND PLEATER Urine malodor XR MAMMO BILAT SCREEN FFDM (IA)Cfeqnil9402/04/2015 8:13 AM HAND PLEATER Visit for screening mammogram LIPID PANEL W REFLEX MEASURED FLOGlkaqzh53/10/2015 7:33 AM HAND PLEATER Screening cholesterol level HEATER FURNACE THIN PREP PAP SCREEN VDYOKZNpxwbqx71/30/2015 3:17 PM HAND PLEATER Screening for cervical cancer from Last 3 Months or Most Recently Relevant to Health Maintenance Results * LAB TRACKING EVENT (02/18/2025 12:00 PM HAND PLEATER)Specimen (Source)Anatomical Location / LateralityCollection Method / VolumeCollection TimeReceived Time Other (Other)Client Collect / Utchwct1002/18/2025 12:00 PM CST02/18/2025 10:21 PM HAND PLEATER Narrative Authorizing ProviderResult TypeResult StatusKatshira Rodríguez MDLAB BILL ONLY Final ResultPerforming OrganizationAddressCity/State/ZIP CodePhone Number [facility] [address] [place] [address], * SCAN-OPERATIVE/PROCEDURE REPORT (02/18/2025 12:00 AM HAND PLEATER) Narrative Authorizing ProviderResult TypeResult StatusScannerOTHERFinal Result * CT ABDOMEN PELVIS W (02/17/2025 7:47 AM HAND PLEATER)Anatomical RegionLaterality ModalityAbdomen, Pelvis, AORTA, LIVER, SPLEENComputed TomographySpecimen (Source)Anatomical Location / LateralityCollection Method / VolumeCollection TimeReceived Time02/17/2025 11:28 AM HAND PLEATER Impressions 02/17/2025 11:28 AM HAND PLEATER 1. Gallbladder is distended with a stone near the gallbladder neck. No wall thickening or pericholecystic fluid. Recommend further evaluation with dedicated localized physical exam and right upper quadrant ultrasound if clinical concern persists for acute cholecystitis. 2. Punctate nonobstructing right renal stone. Please note that all CT scans at this facility use dose modulation, iterative reconstruction, and/or weight-based dosing when appropriate to reduce radiation dose to as low as reasonably achievable. Dictated by Wali Ferro MD @ 02/17/2025 11:28:37 AM (Electronically Signed) Narrative 02/17/2025 11:28 AM HAND PLEATER For Patients: As a result of the Cures Act, medical imaging exams and procedure reports are released immediately into your electronic medical record. You may view this report before your referring provider. If you have questions, please contact your health care provider. INDICATION: Abdominal pain, right upper quadrant pain TECHNIQUE: CT abdomen and pelvis acquired with 75 cc Omnipaque 350 IV contrast. COMPARISON: None. FINDINGS: Lower chest: The visualized lower lungs are aerated. No pleural or pericardial effusion. ABDOMEN: Liver: Normal enhancement. No focal suspicious hepatic lesions. Gallbladder and biliary: Gallbladder is distended with a stone near the gallbladder neck. No wall thickening or pericholecystic fluid. Mild prominence of the common bile duct with smooth distal tapering. Spleen: 10 millimeter splenic focus measuring near simple attenuation, statistically of no clinicalconsequence. Pancreas: Normal enhancement without peripancreatic inflammatory changes or ductal dilatation. Adrenal glands: Normal adrenal glands. Kidneys and ureters: 1 millimeter nonobstructing inferior pole right renal stone. Subcentimeter hypodensities are too small to characterize however statistically represent cysts. GI tract: The stomach is relatively decompressed. Normal caliber small and large bowel loops. Normal appendix. Colonic diverticulosis without diverticulitis. Vascular structures: Normal caliber aorta with atherosclerotic calcifications. Lymph nodes: No lymphadenopathy in the abdomen or pelvis by size criteria. Peritoneum: No free air, free fluid, or focal drainable fluid collection. PELVIS: Genitourinary system: Urinary bladder is decompressed. Age-appropriate uterus and ovaries. SKELETAL STRUCTURES AND SOFT TISSUES: Likely posterior right subcutaneous nodule abutting the skin surface favoring a sebaceous cyst. Lumbar spondylosis. Procedure Note Wali Ferro MD - 02/17/2025 For Patients: As a result of the Cures Act, medical imagingexams and procedure reports are released immediately into your electronicmedical record. You may view this report before your referring provider.If you have questions, please contact your health care provider. INDICATION: Abdominal pain, right upper quadrant pain TECHNIQUE: CT abdomen and pelvis acquired with 75 cc Omnipaque 350 IV contrast. COMPARISON: None. FINDINGS: Lower chest: The visualized lower lungs are aerated. No pleural orpericardial effusion. ABDOMEN: Liver: Normal enhancement. No focal suspicious hepatic lesions. Gallbladder and biliary: Gallbladder is distended with a stone near the gallbladder neck. No wall thickening or pericholecystic fluid. Mildprominence of the common bile duct with smooth distal tapering. Spleen: 10 millimeter splenic focus measuring near simple attenuation, statistically of no clinical consequence. Pancreas: Normal enhancement without peripancreatic inflammatory changesor ductal dilatation. Adrenal glands: Normal adrenal glands. Kidneys and ureters: 1 millimeter nonobstructing inferior pole right renalstone. Subcentimeter hypodensities are too small to characterize howeverstatistically represent cysts. GI tract: The stomach is relatively decompressed. Normal caliber small andlarge bowel loops. Normal appendix. Colonic diverticulosis withoutdiverticulitis. Vascular structures: Normal caliber aorta with atheroscleroticcalcifications. Lymph nodes: No lymphadenopathy in the abdomen or pelvis by sizecriteria. Peritoneum: No free air, free fluid, or focal drainable fluidcollection. PELVIS: Genitourinary system: Urinary bladder is decompressed. Age-appropriateuterus and ovaries. SKELETAL STRUCTURES AND SOFT TISSUES: Likely posterior right subcutaneousnodule abutting the skin surface favoring a sebaceous cyst. Lumbarspondylosis. IMPRESSION: 1. Gallbladder is distended with a stone near the gallbladder neck. Nowall thickening or pericholecystic fluid. Recommend further evaluationwith dedicated localized physical exam and right upper quadrant ultrasoundif clinical concern persists for acute cholecystitis. 2. Punctate nonobstructing right renal stone. Please note that all CT scans at this facility use dose modulation,iterative reconstruction, and/or weight-based dosing when appropriate toreduce radiation dose to as low as reasonably achievable. Dictated by Wali Ferro MD @ 02/17/2025 11:28:37 AM (Electronically Signed) Authorizing ProviderResult TypeResult StatusPolina Rodríguez MDCTFinal Result * POCT Creatinine (02/17/2025 7:25 AM HAND PLEATER)ComponentValueRef RangeTest Method Analysis TimePerformed AtPathologist SignaturePOCT,CREATININE, ISTAT0.60.6 - 1.3 mg/dL02/17/2025 7:40 AM [facility]pecimen (Source)Anatomical Location / LateralityCollection Method / VolumeCollection TimeReceived TimeBloodBLOOD SPECIMEN / UnknownQuest Collect / Unknown 02/17/2025 7:25 AM CST02/17/2025 7:28 AM HAND PLEATER Narrative Authorizing ProviderResult TypeResult StatusPolina Rodríguez MDCHEMISTRYFinal ResultPerforming OrganizationAddressCity/State/ZIP CodePhone Number [facility] [address] [place] [address], [place] [phone] [facility] [address] [place] [address], [place] [phone] * (ABNORMAL) UA Dip w/ reflex* to UC [[id number]] (02/11/2025 8:05 AM HAND PLEATER) ComponentValueRef RangeTest MethodAnalysis TimePerformed AtPathologist SignatureCOLORAMBER(A)DGDJVZ0302/11/2025 8:21 AM [facility]ENTERAPPEARANCESLIGHTLY CLOUDY(A)CLEAR02/11/2025 8:21 AM [facility]ITALPECIFIC GRAVITY1.0201.001 - 1.2190102/11/2025 8:21 AM [facility] CLINICPH6.55.0 - 8.012 8:21 AM [facility]ENTERGLUCOSETRACE(A)HTWUYADK17/17/2025 8:21 AM [facility]ENTERBILIRUBIN1+(A)ZCEXQNBT90/17/2025 8:21 AM [facility] CLINICComment: A false positive may be caused by the drug Lodine. For any presumptive positive bilirubin, consider confirmation by serum bilirubin if clinically indicated. KETONES1+(A)AFEFXQVD88/17/2025 8:21 AM [facility] CENTEROCCULT BLOODTRACE(A)ORKETMZR84/17/2025 8:21 AM [facility] PROTEINTRACE(A)ZKUEYLEL87/17/2025 8:21 AM [facility] OAKDCSKQAUNQYDLMSDRVNCN29/17/2025 8:21 AM [facility] LEUKOCYTE ESTERASETRACE(A)UAQNAZVR95/17/2025 8:21 AM [facility]ITALpecimen (Source)Anatomical Location / LateralityCollection Method / VolumeCollection TimeReceived TimeUrineURINE SPECIMEN / UnknownNon-Blood / Wbzusjr6002/11/2025 8:05 AM CST02/11/2025 8:14 AM HAND PLEATER Narrative Authorizing ProviderResult TypeResult StatusMeisiaas Garcia PAURINEFinal ResultPerforming OrganizationAddressCity/State/ZIP CodePhone Number [facility] [address] [place] [address], [place] [phone] [facility] [address] [place] [address], [place] [phone] * URINE CULTURE INDICATED (QUEST REFLEX ONLY) (02/11/2025 8:05 AM HAND PLEATER)Component ValueRef RangeTest MethodAnalysis TimePerformed AtPathologist SignatureURINE CULTURE INDICATEDSEE NOTE02/11/2025 8:21 AM CSTQUEST DIAGNOSTICSComment: CULTURE INDICATED - RESULTS TO FOLLOWSpecimen (Source)Anatomical Location / LateralityCollection Method / VolumeCollection TimeReceived TimeUrineURINE SPECIMEN / UnknownNon-Blood / Xsotmef1402/11/2025 8:05 AM CST02/11/2025 8:14 AM HAND PLEATER Narrative Authorizing ProviderResult TypeResult StatusMeisaias Garcia PAURINEFinal ResultPerforming OrganizationAddressCity/State/[facility] CodePhone Number [facility] [address] [place] [address], * (ABNORMAL) UA Micro [[id number]] (02/11/2025 8:05 AM HAND PLEATER)ComponentValueRef Range Test MethodAnalysis TimePerformed AtPathologist SignatureWBC UA0-5< OR = 5 /HPF02/12/2025 5:44 AM CSTQUEST DIAGNOSTICSRBC UA0-2< OR = 2 /HPF02/12/2025 5:44 AM CSTQUEST DIAGNOSTICSBACTERIA UAFEW(A)NONE SEEN /HPF02/12/2025 5:44 AM CSTQUEST DIAGNOSTICSHYALINE CAST0-5(A)NONE SEEN /LPF104/15/2024 5:44 AM HAND PLEATER [facility]ICSCALCIUM OXALATE CRYSTALSFEWNONE OR FEW /HPF02/12/2025 5:44 AM CSTQUEST DIAGNOSTICSSQUAMOUS EPITHELIAL CELLS UA6-10(A)< OR = 5 /HPF 02/12/2025 5:44 AM CSTQUEST DIAGNOSTICSAMORPHOUS SEDIMENT UAFEWNONE OR FEW /HPF02/12/2025 5:44 AM CSTQUEST DIAGNOSTICSNOTE UASEE NOTE02/12/2025 5:44 AM CSTQUEST DIAGNOSTICSComment: This urine was analyzed for the presence of WBC, RBC, bacteria, casts, and other formed elements. Only those elements seen were reported. Specimen (Source)Anatomical Location / LateralityCollection Method / Volume Collection TimeReceived TimeUrineURINE SPECIMEN / UnknownNon-Blood / Unknown 02/11/2025 8:05 AM CST02/11/2025 8:14 AM HAND PLEATER Narrative Authorizing ProviderResult TypeResult StatusMeisaias Garcia PAURINEFinal ResultPerforming OrganizationAddressty/State/[facility] CodePhone Number [facility] [address] [place] [address], [place] [phone] * URINE CULTURE (02/11/2025 8:05 AM HAND PLEATER)ComponentValueRef RangeTest Method Analysis TimePerformed AtPathologist SignatureCULTURE, URINE, ROUTINESEE NOTE 02/13/2025 12:08 AM CSTQUEST DIAGNOSTICSComment: ??CULTURE, URINE, ROUTINE ?Micro Number: ?[id number] ??Test Status: ? Final ??Specimen Source: ?? Urine ??Specimen Quality: ??Adequate ??Result: ?Mixed genital justin isolated. These superficial ? bacteria are not indicative of a urinary tract ? infection. No further organism identification is ? warranted on this specimen. If clinically ? indicated, recollect clean-catch, mid-stream ? urine and transfer immediately to Urine Culture ? Transport Tube. Specimen (Source)Anatomical Location / LateralityCollection Method / Volume Collection TimeReceived TimeUrineURINE SPECIMEN / UnknownNon-Blood / Unknown 02/11/2025 8:05 AM CST02/11/2025 8:14 AM HAND PLEATER Narrative Authorizing ProviderResult TypeResult StatusMeisaias Garcia PAMICROBIOLOGY Final ResultPerforming OrganizationAddressCity/State/ZIP CodePhone Number [facility] [address] [place] [address], * XR MAMMO BILAT SCREEN FFDM (02/04/2015 8:13 AM HAND PLEATER)Anatomical RegionLaterality ModalityBREASTS, Breast Left, Breast RightBilateralMammographySpecimen (Source)Anatomical Location / LateralityCollection Method / VolumeCollection TimeReceived Time Impressions 02/04/2015 12:29 PM HAND PLEATER There is no radiographic evidence for malignancy. Recommend annual mammograms. A lay language report of this examination will be provided to the patient. MAMMOGRAM ASSESSMENT: ??ACR 2 Benign Narrative 02/04/2015 12:29 PM HAND PLEATER XR MAMMO BILAT SCREEN FFDM [G0202.0] CLINICAL HISTORY: ??This is an asymptomatic 54 y.o. patient. INDICATION FOR EXAM: Mammogram Screening. TECHNIQUE: CC & MLO views were obtained. This digital study was evaluated with the assistance of Computer-Aided Detection. COMPARISON FILMS: Yes 12/28/09 [facility] FINDINGS: ??Mammographically, the breast tissue is heterogeneously dense, which could obscure detection of small masses. ??No suspicious masses or microcalcifications. ??Benign appearing calcifications within both breasts. Authorizing ProviderResult TypeResult StatusTamera Antonio PAMAMMOFinal Result * (ABNORMAL) LIPID PANEL W REFLEX MEASURED LDL (02/04/2015 7:33 AM HAND PLEATER)Component ValueRef RangeTest MethodAnalysis TimePerformed AtPathologist Signature CHOLESTEROL,GWBNO516(H)100 - 199 mg/dL 02/04/2015 8:26 AM [facility] CENTERTRIGLYCERIDES111<150 mg/dL 02/04/2015 8:26 AM [facility]ENTERHDL ZHRHTXNWCQH42>40 mg/dL 02/04/2015 8:26 AM [facility] CENTERNON-HDL OAXZYLRXZOV839(H) <145 mg/dl 02/04/2015 8:26 AM [facility]ENTERCHOL/HDL RATIO4.02<4.50 02/04/2015 8:26 AM [facility] CENTERLDL PQHZDBABIOC069(H)<=130 mg/dL 02/04/2015 8:26 AM [facility] CLINICPATIENT STATUSFASTING 02/04/2015 8:26 AM [facility]pecimen (Source)Anatomical Location / LateralityCollection Method / VolumeCollection TimeReceived Time Blood specimen (specimen)BLOOD SPECIMEN / UnknownVenipuncture / Unknown 02/04/2015 7:33 AM CST02/04/2015 7:33 AM HAND PLEATER Narrative Authorizing ProviderResult TypeResult StatusTamera Antonio PACHEMISTRY Final ResultPerforming OrganizationAddressCity/State/ZIP CodePhone Number [facility] [address] [place] [address], * HEATER FURNACE THIN PREP PAP SCREEN IMAGED (01/25/2015 3:17 PM HAND PLEATER)ComponentValueRef RangeTest MethodAnalysis TimePerformed AtPathologist SignatureGYN CYTOLOGYSee Anatomic Pathology case 01/30/2015 4:01 PM [facility]STLEWISG[facility]-CENTRAL LABORATORYSpecimen (Source)Anatomical Location / LateralityCollection Method / VolumeCollection TimeReceived TimeSpecimen (specimen)Non-Blood / Gbvdveq9401/25/2015 3:17 PM HAND PLEATER 01/25/2015 3:17 PM HAND PLEATER Narrative Authorizing ProviderResult TypeResult StatusBridget Luisa RIVERA PATHOLOGY/CYTOLOGYFinal ResultPerforming OrganizationAddressCity/State/ZIP Code Phone Number [facility] [address] [place] [address], from Last 3 Months or Most Recently Relevant to Health Maintenance Insurance Care Teams Team MemberRelationshipSpecialtyStart DateEnd Date Eleni Garcia PA [address] [place] [address] PCP - GeneralPhysician Ibmqgtmjp67/17/25
[2025-02-24 07:05] VITALS: BP 108/73; PULSE 113; RESP 18; TEMP 36.4; O2SAT 95; BMI 25.0
--- NOTE | 2025-02-24 07:26 | ED_ITS ---
HPI - General Adult General Chief complaint: Nausea/Vomiting <Nadia Sutherland MD - Last Filed: 02/25/25 00:33> Stated complaint: vomiting post gall bladder surgery <Nadia Sutherland MD - Last Filed: 02/25/25 00:33> Time Seen by Provider: 02/24/25 07:08 <Nadia Sutherland MD - Last Filed: 02/25/25 00:33> Source: patient <Nadia Sutherland MD - Last Filed: 02/25/25 00:33> Mode of arrival: ambulatory <Nadia Sutherland MD - Last Filed: 02/25/25 00:33> Limitations: no limitations <Nadia Sutherland MD - Last Filed: 02/25/25 00:33> History of Present Illness HPI narrative: 64-year-old female with a notable history of a cholecystectomy 1 week ago after 10 days of symptomatic gallstones presents to the ED with 24 hours of nausea and vomiting. No abdominal pain. No history of bowel obstructions. Patient had vomiting and diarrhea yesterday, her last episode of vomiting was about 3 hours prior to arrival. No new injury or trauma. She is not running any fevers. No bloody diarrhea, no blood in her emesis. She did try taking a Reglan that she was prescribed for the nausea at home prior to coming to the ED with no improvement. It looks like she also has some Zofran at home, did not try taking that medication. She is worried this could be a surgical complication or something more ongoing. She was healing well after the surgery initially and symptoms had resolved. She has not been around anyone that has been knowingly sick but we have seen a lot of stomach flu like symptoms here in the ED. She is not having any headache, high fevers, myalgias or typical influenza symptoms. Has not tried other treatments at home prior to coming to the ED. Was tachycardic in triage. Past medical history notable for recent cholecystectomy. Denies long-term health problems. Allergy to clindamycin noted. ROS notable for the GI symptoms only, otherwise denies times 12 systems. <Nadia Sutherland MD - Last Filed: 02/25/25 00:33> Related Data Home medications: Previous Rx's ?Medication ?Instructions ?Recorded loperamide 2 mg capsule See Rx Instructions PO Q6H P RN 02/06/25 loose stool #30 caps ondansetron 8 mg disintegrating 8 mg PO Q8H PRN nausea and 02/06/25 tablet vomiting #30 tabs famotidine 40 mg tablet 40 mg PO DAILY #30 tabs 01/26 08/20 metoclopramide HCl 10 mg tablet 10 mg PO QID PRN nause a and 02/10/25 vomiting #15 tabs hydrocodone 5 mg-acetaminophen 325 1 tab PO Q6H PRN Pa in #20 tabs 02/18/25 mg tablet <Nadia Sutherland MD - Last Filed: 02/25/25 00:33> Allergies/adverse reactions: Allergies Allergy/AdvReac Type Severity Reaction Status Date / Time clindamycin (From Cleocin) Allergy Verified 02/27/25 09:57 <Nadia Sutherland MD - Last Filed: 02/25/25 00:33> [facility] Medical History: Medical History History of elective section ?Z98.891 - History of uterine scar from previous surgery (ICD-10) <Nadia Sutherland MD - Last Filed: 02/25/25 00:33> Surgical History: Surgical History History of bunionectomy ?Z98.890 - Other specified postprocedural states (ICD-10) <Nadia Sutherland MD - Last Filed: 02/25/25 00:33> Social History: Social History What is your current living situation?: I presently have a place to live Problems where you live: no known problems Problems where you live details: no known problems In the past 12 months, utilities in danger of being shut off: no In past 12 months, lack of transportation kept you from medical appts, meetings, work, or getting things needed for daily living: no In the past 12 mos, have been you worried that your food would run out before you had money to buy more?: never true In the past 12 mos, the food you bought just didn't last and you didn't have money to buy more?: never true Highest level of school completed/degree received: some college, no degree Smoking Status: Current every day smoker What tobacco products do you use: cigarettes Second hand tobacco smoke exposure: Yes How often do you have a drink containing alcohol: never AUDIT-C Alcohol total score: 0 Non-prescribed substance use: denies use Caffeine: Yes How often does anyone, including family, friends and others, physically hurt you : never How often does anyone, including family, friends and others, insult or talk down to you: never How often does anyone, including family, friends and others, threaten you with harm: never How often does anyone, including family, friends and others, scream or curse at you: never service: No <Nadia Sutherland MD - Last Filed: 02/25/25 00:33> Exam Const: Vital Signs, click to edit/add: Vital Signs - 24 hr 02/24/25 07:05 02/24/25 09:52 02/24/25 13:39 Temperature 97.5 F L Pulse Rate [Pulse Oximeter] 113 H 85 80 Respiratory Rate 18 18 24 Blood Pressure [Ri ght Upper Arm] 108/73 112/45 L 105/49 L Pulse Oximetry 95 92 90 Oxygen Delivery Me thod Room Air Room Air Room Air <Nadia Sutherland MD - Last Filed: 02/25/25 00:33> Vital Signs, click to edit/add: Vital Signs - 24 hr 02/24/25 07:05 02/24/25 09:52 02/24/25 13:39 Temperature 97.5 F L Pulse Rate [Pulse Oximeter] 113 H 85 80 Respiratory Rate 18 18 24 Blood Pressure [Ri ght Upper Arm] 108/73 112/45 L 105/49 L Pulse Oximetry 95 92 90 Oxygen Delivery Me thod Room Air Room Air Room Air <Wali Eddy MD - Last Filed: 03/08/25 20:34> Documenting provider has reviewed patient's vital signs: yes <Nadia Sutherland MD - Last Filed: 02/25/25 00:33> Common normals: no apparent distress <MD Philomena Cuevas Last Filed: 02/25/25 00:33> General appearance: cooperative <MD Philomena Cuevas Last Filed: 02/25/25 00:33> Other: Appears nontoxic. <MD Philomena Cuevas Last Filed: 02/25/25 00:33> HENMT: Common normals: normocephalic and oropharynx normal <Nadia Sutherland MD - Last Filed: 02/25/25 00:33> Head and scalp: normocephalic <MD Philomena Cuevas Last Filed: 02/25/25 00:33> Throat: posterior oropharynx normal <MD Philomena Cuevas Last Filed: 02/25/25 00:33> Eye: Common normals: conjunctivae normal <MD Philomena Cuevas Last Filed: 02/25/25 00:33> General eye: normal appearance of both eyes <MD Philomena Cuevas Last Filed: 02/25/25 00:33> Conjunctiva: conjunctiva(e) normal <MD Philomena Cuevas Last Filed: 02/25/25 00:33> Neck & C-Spine: Common normals: full ROM and no lymphadenopathy <MD Philomena Cuevas Last Filed: 02/25/25 00:33> General: normal visual inspection <MD Philomena Cuevas Last Filed: 02/25 00:33> Resp: Common normals: normal respiratory effort and clear to auscultation bilaterally <MD Philomena Cuevas Last Filed: 02/25/25 00:33> Effort & inspection: able to speak in complete sentences <MD Philomena Cuevas Last Filed: 02/25/25 00:33> Auscultation: clear to auscultation bilaterally <MD Philomena Cuevas Last Filed: 02/25/25 00:33> Cardio: Common normals: regular rate, regular rhythm, S1 normal heart sound, S2 normal heart sound and no murmurs <MD Philomena Cuevas Last Filed: 02/25/25 00:33> Rate: regular rate <MD Philomena Cuevas Last Filed: 02/25/25 00:33> Rhythm: regular rhythm <MD Philomena Cuevas Last Filed: 02/25/25 00:33> Heart sounds: S1 normal and S2 normal <MD Philomena Cuevas Last Filed: 02/25/25 00:33> GI: Common normals: Normal to inspection, nondistended, normoactive bowel sounds present, soft to palpation, non-tender, no hepatosplenomegaly and no masses <MD Philomena Cuevas Last Filed: 02/25/25 00:33> Palpation: soft and no hepatosplenomegaly <Nadia Sutherland MD - Last Filed: 02/25/25 00:33> Other: Surgical sites with bruising but otherwise healing well. Abdomen is nondistended. <Nadia Sutherland MD - Last Filed: 02/25/25 00:33> Extremity: Common normals: normal to inspection and normal capillary refill <Nadia Sutherland MD - Last Filed: 02/25/25 00:33> Psych: Appearance: grossly normal <Nadia Sutherland MD - Last Filed: 02/25/25 00:33> Activity/motor behavior: appropriate eye contact <Nadia Sutherland MD - Last Filed: 02/25/25 00:33> Attention/concentration: attention grossly intact <MD Philomena Cuevas Last Filed: 02/25/25 00:33> Memory/cognition: memory grossly intact <MD Philomena Cuevas Last Filed: 02/25/25 00:33> Insight: insight good <MD Philomena Cuevas Last Filed: 02/25/25 00:33> Judgement: judgment good <MD Philomena Cuevas Last Filed: 02/25/25 00:33> Other: Mildly anxious but redirectable. <MD Philomena Cuevas Last Filed: 02/25/25 00:33> Skin: Common normals: no rashes or lesions noted <Nadia Sutherland MD - Last Filed: 02/25/25 00:33> General skin exam: no rashes or lesions noted <Nadia Sutherland MD - Last Filed: 02/25/25 00:33> Course Course ED Course: 64-year-old female with 24 hours of nausea vomiting and diarrhea, not improving with Reglan at home. Recent cholecystectomy and ongoing nausea and vomiting symptoms intermittently over the last 4 weeks. It is suspected most of that early on was from the gallstones. Initially did improve with the cholecystectomy. Differential diagnosis including pancreatitis, biliary obstruction, most likely gastroenteritis, cannot exclude bowel obstruction, gastritis, colitis or other etiology. Patient was initially tachycardic in triage, was at the time of my auscultation but I do think that there is certainly a risk of something more serious going on. I recommended basic labs to look for liver function, electrolytes, kidney function, pancreatitis. Will place peripheral IV and give 1 L of LR, 8 mg of Zofran and re-evaluate. If symptoms improve and she can hold down clear liquids, may be able to be discharged with oral Zofran. Consider imaging if labs are unexpectedly abnormal. <Nadia Sutherland MD - Last Filed: 02/25/25 00:33> Reevaluation(s) Time of Reevaluation #1: 08:20 <Nadia Sutherland MD - Last Filed: 02/25/25 00:33> Reevaluation #1: Update: Patient is feeling somewhat better after the Zofran but not completely. Unfortunately, her labs do reflect some abnormalities that I think warrant increase clinical suspicion for complications. Her lipase is around 400, her liver enzymes are elevated including her bili of 2. I think there could be a gallstone causing an obstruction. This may not have been fully realized at the time of cholecystectomy. This certainly could be pancreatitis o r obstruction from another source. I recommended a CT of the abdomen and pelvis as the next diagnostic step, consider surgical consult. Will hand over care to incoming day shift partner. <Nadia Sutherland MD - Last Filed: 02/25/25 00:33> Vital Signs Vital signs: Initial Vital Signs Temperature 97.5 F L 02/24/25 07:05 Temperature Source Temporal Artery Scan 02/24/25 07:05 Pulse Rate 113 H 02/24/25 07:05 Respiratory Rate 18 02/24/25 07:05 Blood Pressure 108/73 02/24/25 07:05 Blood Pressure Mean 84 02/24/25 07:05 Pulse Oximetry 95 02/24/25 07:05 Oxygen Delivery Method Room Air 02/24/25 07:05 Vital Signs Temperature 97.5 F L 02/24/25 07:05 Pulse Rate 113 H 02/24/25 07:05 Respiratory Rate 18 02/24/25 07:05 Blood Pressure 108/73 02/24/25 07:05 Pulse Oximetry 95 02/24/25 07:05 Oxygen Delivery Method Room Air 02/24/25 07:05 Temperature 97.5 F L 02/24/25 07:05 Pulse Rate 80 02/24/25 13:39 Respiratory Rate 24 02/24/25 13:39 Blood Pressure 105/49 L 02/24/25 13:39 Pulse Oximetry 90 02/24/25 13:39 Oxygen Delivery Method Room Air 02/24/25 13:39 <Nadia Sutherland MD - Last Filed: 02/25/25 00:33> Initial Vital Signs Temperature 97.5 F L 02/24/25 07:05 Temperature Source Temporal Artery Scan 02/24/25 07:05 Pulse Rate 113 H 02/24/25 07:05 Respiratory Rate 18 02/24/25 07:05 Blood Pressure 108/73 02/24/25 07:05 Blood Pressure Mean 84 02/24/25 07:05 Pulse Oximetry 95 02/24/25 07:05 Oxygen Delivery Method Room Air 02/24/25 07:05 Vital Signs Temperature 97.5 F L 02/24/25 07:05 Pulse Rate 113 H 02/24/25 07:05 Respiratory Rate 18 02/24/25 07:05 Blood Pressure 108/73 02/24/25 07:05 Pulse Oximetry 95 02/24/25 07:05 Oxygen Delivery Method Room Air 02/24/25 07:05 Temperature 97.5 F L 02/24/25 07:05 Pulse Rate 80 02/24/25 13:39 Respiratory Rate 24 02/24/25 13:39 Blood Pressure 105/49 L 02/24/25 13:39 Pulse Oximetry 90 02/24/25 13:39 Oxygen Delivery Method Room Air 02/24/25 13:39 <Wali Eddy MD - Last Filed: 03/08/25 20:34> Medications Administered Medications: Discontinued Medications Generic Name Dose Route Start Last Admin Trade Name Freq PRN Reason Stop Dose Admin Lactated Ringer's 1,000 mls @ 1,000 mls/hr 02/24/25 07:12 02/24/25 08:30 Lactated Ringers 1000 Ml IV 02/24/25 08:11 Infused .Q1H ONE Infusion Sodium Chloride 1,000 mls @ 1,000 mls/hr 02/24/25 10:48 02/24/25 14:26 0.9 % Sodium Chloride 1000 Ml IV 02/24/25 11:47 Infused .Q1H ONE Infusion Metoclopramide HCl 10 mg/ 102 mls @ 306 mls/hr 02/24/25 10:48 02/24/25 11:25 Sodium Chloride IVPB 02/24/25 11:07 Infused ONCE ONE Infusion Lorazepam 1 mg 02/24/25 12:00 02/24/25 12:07 Lorazepam 2 Mg/Ml Inj IV 02/24/25 12:01 1 mg ONCE ONE Administration Ondansetron HCl 8 mg 02/24/25 07:25 02/24/25 07:39 Ondansetron 2 Mg/Ml Inj IVP 02/24/25 07:26 8 mg ONCE ONE Administration <Nadia Sutherland MD - Last Filed: 02/25/25 00:33> Discontinued Medications Generic Name Dose Route Start Last Admin Trade Name Freq PRN Reason Stop Dose Admin Lactated Ringer's 1,000 mls @ 1,000 mls/hr 02/24/25 07:12 02/24/25 08:30 Lactated Ringers 1000 Ml IV 02/24/25 08:11 Infused .Q1H ONE Infusion Sodium Chloride 1,000 mls @ 1,000 mls/hr 02/24/25 10:48 02/24/25 14:26 0.9 % Sodium Chloride 1000 Ml IV 02/24/25 11:47 Infused .Q1H ONE Infusion Metoclopramide HCl 10 mg/ 102 mls @ 306 mls/hr 02/24/25 10:48 02/24/25 11:25 Sodium Chloride IVPB 02/24/25 11:07 Infused ONCE ONE Infusion Lorazepam 1 mg 02/24/25 12:00 02/24/25 12:07 Lorazepam 2 Mg/Ml Inj IV 02/24/25 12:01 1 mg ONCE ONE Administration Ondansetron HCl 8 mg 02/24/25 07:25 02/24/25 07:39 Ondansetron 2 Mg/Ml Inj IVP 02/24/25 07:26 8 mg ONCE ONE Administration <Wali Eddy MD - Last Filed: 03/08/25 20:34> Medical Decision Making [facility] Narrative Medical decision making narrative: Nunu -- Inherited this patient at change of shift pending CT imaging and effective antiemetics and fluid resuscitation. Week ago had a [place]ole[place] for symptomatic cholelithiasis. Labs today showed a lipase of 399. White count is not elevated. Total bili of 2.1. AST of 114 and ALT of 91 and alkaline phosphatase 319. She has been struggling with diarrhea for some time. Starting yesterday evening though began vomiting and again today. CT imaging is reviewed. INDICATION: NAUSEA. PANCREATITIS 1 WEEK POST ANOOP. (Sic) COMPARISON: No prior CT. Ultrasound dated 02/09/2025. TECHNIQUE: CT of the abdomen and pelvis with 75 cc of Isovue 370 intravenous contrast. Please note that all CT scans at this facility use dose modulation, iterative reconstruction, and/or weight-based dosing when appropriate to reduce radiation dose to as low as reasonably achievable. FINDINGS: ABDOMEN Liver: Normal contour. Minimal left hepatic lobe focal fatty infiltration adjacent to the intersegmental fissure. No significant focal lesion. Mild prominence of the central intrahepatic bile ducts is noted which is nonspecific. This finding has been described in the absence of bile duct obstruction. Correlation with the patient`s clinical status and laboratory findings is recommended. Patent portal veins. Patent hepatic veins. Portal veins are not uniformly enhanced on the early hepatic arterial phase study. Hepatic veins are not enhanced on this hepatic arterial phase exam. Gallbladder: Interval cholecystectomy compared to the ultrasound of 02/09/2025. Minimal fluid within the cholecystectomy surgical bed, considered to be within normal limits. There is no peripherally enhancing encapsulated fluid collection with mass effect to indicate a postoperative abscess. Common duct caliber is 10 mm, at the upper limit of normal following cholecystectomy. No intraluminal or extrinsic obstructing lesion is identified. The duct tapers normally at the level of the major ampulla. Dilatation of the common bile duct is nonspecific as, similar to the mild central intrahepatic biliary ductal dilatation described above, bile duct dilatation has been described in the absence of obstruction. Again, correlation with the patient`s clinical status and laboratory findings is recommended. Pancreas: Normal contour and attenuation. No peripancreatic inflammatory changes. No significant focal lesion. Normal main duct caliber. Spleen: Not enlarged. Incidental oval circumscribed homogeneous low-attenuation finding in the posterior spleen measuring 10 mm. Region of interest interrogation shows a Hounsfield measurement of 25 HU, just above the upper limit of normal for simple fluid (20 HU). This could be due to pseudo enhancement due to the small size of the finding which is likely a benign cyst. No routine workup or ongoing imaging surveillance is indicated for such findings per ACR white paper guidelines. Patent splenic artery and vein. Adrenal Glands: Symmetrical adrenal glands. No significant focal lesion. Kidneys: Normal bilateral renal attenuation. No significant focal lesion. Two small to characterize round circumscribed homogeneous low-attenuation finding in the posterior interpolar right renal cortex likely a benign cyst for which no further workup or ongoing imaging surveillance is indicated per ACR white paper guidelines (series 2; image 40). Punctate nonobstructing right lower pole nephrolith (4; 75). No dilatation of the intrarenal collecting systems. No ureteral stone. Nondilated ureters. Patent renal arteries and veins. Gastrointestinal tract: Normal caliber, attenuation and wall thickness of the gastrointestinal tract. Diverticulosis of the descending and sigmoid colon without associated inflammatory changes. Normal small bowel mesentery. Normal appendix. Vascular: Chronic aortoiliac atherosclerotic mural calcification. Abdominal aorta and its major proximal branches including the celiac, superior mesenteric, inferior mesenteric, renal, and bilateral common iliac arteries are patent. Patent superior mesenteric vein. Peritoneal Cavity/Retroperitoneum: No ascites. No adenopathy. PELVIS No bladder lesion is identified. No significant incidental findings related to the uterus or uterine adnexa. No significant ascites. No adenopathy. SKELETON AND BODY WALL Anterior midline epigastric subcutaneous tract consistent with a port site (2; 60). LOWER THORAX Right middle lobe and lingular pleural-based linear opacities consistent with nonspecific scar. Differential diagnostic considerations include subsegmental atelectasis. Partially included lower thoracic wall, lungs, pleural spaces and mediastinum are otherwise without significant incidental findings. IMPRESSION: 1. Interval cholecystectomy compared to the ultrasound of 02/09/2025. 2. Minimal fluid within the cholecystectomy surgical bed, considered to be within normal limits. There is no peripherally enhancing encapsulated fluid collection with mass effect to indicate a postoperative abscess. 3. Common duct caliber is 10 mm, at the upper limit of normal following cholecystectomy. No intraluminal or extrinsic obstructing lesion is identified. The duct tapers normally at the level of the major ampulla. Dilatation of the common bile duct is nonspecific as, similar to the mild central intrahepatic biliary ductal dilatation described above, bile duct dilatation has been described in the absence of obstruction. Correlation with the patient`s clinical status and laboratory findings is recommended. 4. Additional findings described in the body of the report. Please note that all CT scans at this facility use dose modulation, iterative reconstruction, and/or weight-based dosing when appropriate to reduce radiation dose to as low as reasonably achievable. Dictated by Len Tripp MD @ 02/24/2025 9:14:19 AM On reassessment says she just feels awful. Not having specific abdominal pain and on repeat exam she is without localizing pain with soft abdomen. Has continued to have diarrhea and this is what sounds to be quite stressful for her. I think laboratory findings are mildly elevated; a little atypical for postoperative findings at this point. Needs oral challenge at some point. Will give another L of fluids as well as IV Reglan. did review findings, labs with General surgery on-call. Concern expressed for possible ductal stone. Liver panel was added with minimal elevation of direct bilirubin. As requested did proceed with MRCP. Indication: Elevated bilirubin and transaminases. Status post cholecystectomy. Technique: MRCP of the abdomen performed without intravenous contrast. Reconstructed images/MIPS were created. 1.5 loyd magnet. Comparison: 02/24/2025 CT of the abdomen and pelvis Findings: Per technologist report, patient requested termination of examination prior to completion of the final sequence, a 3D SPACE sequence. No pleural effusion. Smooth hepatic contour. Postoperative changes from recent cholecystectomy. There is a small amount of nonspecific edema in the cholecystectomy operative bed without a discrete fluid collection. Mild extrahepatic and central intrahepatic biliary ductal dilation. The distal common bile duct smoothly tapers as it approaches the ampulla. No choledocholithiasis or obstructing biliary mass lesion is detected. No splenomegaly. 1 centimeter simple appearing cyst in the posterior spleen. Normal caliber of the main pancreatic duct. Normal adrenal glands. No hydronephrosis. There are few small bilateral renal cysts. Colonic diverticulosis. No focal abnormally dilated loops of bowel within the field of view. No enlarged lymph nodes are detected. No abdominal aortic aneurysm. Mild aortic atherosclerosis. There are postoperative changes in the ventral abdominal wall with a small amount of postoperative edema. There are osseous degenerative changes. Impression: Postoperative changes from recent cholecystectomy. Mild extrahepatic and central intrahepatic biliary ductal dilation, possibly within normal limits for the post cholecystectomy state. The distal common bile duct smoothly tapers as it approaches the ampulla. No choledocholithiasis or obstructing biliary mass lesion is detected. Recommend correlation with LFTs. Dictated by Marcelino Jimenez MD @ 02/24/2025 1:03:13 PM findings relayed to general surgery. Recommending and will assist with scheduling close follow-up. Had also given a dose of lorazepam. I think this in particular was helpful. On reassessment Bhavna is feeling better with continued treatment as above. See patient discharge plan for further discussion Focus on hydration. Slow advance of diet over the next 24-36 hours. Diluted juices, soup broth, crackers, rice, toast. You do have Zofran and Reglan available to you for nausea at home. As the Zofran is dissolvable you might lead with that. Expect a call from general surgery for an appointment with Dr. Gonzalez with whom I consulted today. She would like close follow-up to see you on Sunday to recheck these labs. Be seen sooner for intractable vomiting, fever, increasing pain. <Wali Eddy MD - Last Filed: 03/08/25 20:34> Medical Records Medical records reviewed: Yes I reviewed the patient's medical records <Wali Eddy MD - Last Filed: 03/08/25 20:34> Lab Data Lab results reviewed: Yes I reviewed the patient's lab results <Nadia Sutherland MD - Last Filed: 02/25/25 00:33> Lab results narrative: Lipase and liver enzymes are a more elevated than I would expect, even at this duration postoperatively. <Nadia Sutherland MD - Last Filed: 02/25/25 00:33> Labs: Lab Results 02/24/25 02/24/25 Range/Units 07:41 11:28 WBC 5.97 (4.50-11.00) K/uL RBC 5.35 H (4.00-5.20) m/uL Hgb 14.8 (12.0-16.0) gm/dL Hct 45.4 (33.0-51.0) % MCV 85 (80-100) fL MCH 28 (26-34) pg MCHC 33 (32-36) gm/dL RDW Coeff of Aubrey 11.9 (11.5-15.5) % Plt Count 222 (140-440) K/uL Neut % (Auto) 68.9 (42.0-72.0) % Lymph % (Auto) 22.3 (20-44) % Franklin % (Auto) 7.5 (0.0-11.0) % Eos % (Auto) 0.8 (0.0-7.0) % Baso % (Auto) 0.3 (0.0-3.0) % Neut # (Auto) 4.11 (1.7-7.0) K/uL Lymph # (Auto) 1.33 (0.90-2.90) K/uL Franklin # (Auto) 0.40 (0.00-0.90) K/UL Eos # (Auto) 0.05 (0.00-0.50) K/uL Baso # (Auto) 0.02 (0.00-0.30) K/uL Abs Immat Gran (auto) 0.01 (0.00-0.30) K/uL Imm/Tot Granulo (auto) 0.2 % Sodium 139 (135-149) mmol/L Potassium 3.7 (3.6-5.1) mmol/L Chloride 106 (96-114) mmol/L Carbon Dioxide 24 (20-32) mmol/L Anion Gap 9 (7-15) mEq/L BUN 10 (7-30) mg/dL Creatinine 0.5 (0.5-1.5) mg/dL Estimated Creat Clear 52.51 Estimated GFR 104 ml/min Glucose 122 H (60-115) mg/dL Lactate 1.5 (0.5-1.9) mmol/L Calcium 10.1 (8.4-10.6) mg/dL Total Bilirubin 2.1 H (0.1-1.5) mg/dL Direct Bilirubin 0.8 H (0.0-0.5) mg/dL AST 114 H (12-35) U/L ALT 91 H (4-35) U/L Alkaline Phosphatase 319 H (40-150) U/L C-Reactive Protein 0.5 (0.5-1.0) mg/dL Total Protein 6.6 (6.0-8.3) g/dL Albumin 3.8 (3.3-5.0) g/dL Lipase 399 H (23-300) U/L Lab Acknowledgement Test Added <Nadia Sutherland MD - Last Filed: 02/25/25 00:33> Lab Results 02/24/25 02/24/25 Range/Units 07:41 11:28 WBC 5.97 (4.50-11.00) K/uL RBC 5.35 H (4.00-5.20) m/uL Hgb 14.8 (12.0-16.0) gm/dL Hct 45.4 (33.0-51.0) % MCV 85 (80-100) fL MCH 28 (26-34) pg MCHC 33 (32-36) gm/dL RDW Coeff of Aubrey 11.9 (11.5-15.5) % Plt Count 222 (140-440) K/uL Neut % (Auto) 68.9 (42.0-72.0) % Lymph % (Auto) 22.3 (20-44) % Franklin % (Auto) 7.5 (0.0-11.0) % Eos % (Auto) 0.8 (0.0-7.0) % Baso % (Auto) 0.3 (0.0-3.0) % Neut # (Auto) 4.11 (1.7-7.0) K/uL Lymph # (Auto) 1.33 (0.90-2.90) K/uL Franklin # (Auto) 0.40 (0.00-0.90) K/UL Eos # (Auto) 0.05 (0.00-0.50) K/uL Baso # (Auto) 0.02 (0.00-0.30) K/uL Abs Immat Gran (auto) 0.01 (0.00-0.30) K/uL Imm/Tot Granulo (auto) 0.2 % Sodium 139 (135-149) mmol/L Potassium 3.7 (3.6-5.1) mmol/L Chloride 106 (96-114) mmol/L Carbon Dioxide 24 (20-32) mmol/L Anion Gap 9 (7-15) mEq/L BUN 10 (7-30) mg/dL Creatinine 0.5 (0.5-1.5) mg/dL Estimated Creat Clear 52.51 Estimated GFR 104 ml/min Glucose 122 H (60-115) mg/dL Lactate 1.5 (0.5-1.9) mmol/L Calcium 10.1 (8.4-10.6) mg/dL Total Bilirubin 2.1 H (0.1-1.5) mg/dL Direct Bilirubin 0.8 H (0.0-0.5) mg/dL AST 114 H (12-35) U/L ALT 91 H (4-35) U/L Alkaline Phosphatase 319 H (40-150) U/L C-Reactive Protein 0.5 (0.5-1.0) mg/dL Total Protein 6.6 (6.0-8.3) g/dL Albumin 3.8 (3.3-5.0) g/dL Lipase 399 H (23-300) U/L Lab Acknowledgement Test Added <Wali Eddy MD - Last Filed: 03/08/25 20:34> Imaging Data CT scan - abdomen: Attestation: I have reviewed the pertinent imaging results. <Nadia Sutherland MD - Last Filed: 02/25/25 00:33> Radiologist's impression: IMPRESSION: 1. Interval cholecystectomy compared to the ultrasound of 02/09/2025. 2. Minimal fluid within the cholecystectomy surgical bed, considered to be within normal limits. There is no peripherally enhancing encapsulated fluid collection with mass effect to indicate a postoperative abscess. 3. Common duct caliber is 10 mm, at the upper limit of normal following cholecystectomy. No intraluminal or extrinsic obstructing lesion is identified. The duct tapers normally at the level of the major ampulla. Dilatation of the common bile duct is nonspecific as, similar to the mild central intrahepatic biliary ductal dilatation described above, bile duct dilatation has been described in the absence of obstruction. Correlation with the patient`s clinical status and laboratory findings is recommended. 4. Additional findings described in the body of the report. Please note that all CT scans at this facility use dose modulation, iterative reconstruction, and/or weight-based dosing when appropriate to reduce radiation dose to as low as reasonably achievable. Dictated by Len Tripp MD @ 02/24/2025 9:14:19 AM <Nadia Sutherland MD - Last Filed: 02/25/25 00:33> Discharge Plan Discharge Clinical Impression: Vomiting <Nadia Sutherland MD - Last Filed: 02/25/25 00:33> Patient Disposition: Home w/ Parent or Adult <Nadia Sutherland MD - Last Filed: 02/25/25 00:33> Condition: Improved <Nadia Sutherland MD - Last Filed: 02/25/25 00:33> Additional Instructions: Focus on hydration. Slow advance of diet over the next 24-36 hours. Diluted juices, soup broth, crackers, rice, toast. You do have Zofran and Reglan available to you for nausea at home. As the Zofran is dissolvable you might lead with that. Expect a call from general surgery for an appointment with Dr. Gonzalez with whom I consulted today. She would like close follow-up to see you on Sunday to recheck these labs. Be seen sooner for intractable vomiting, fever, increasing pain. <Nadia Sutherland MD - Last Filed: 02/25/25 00:33> Prescriptions: No Action ondansetron 8 mg tablet,disintegrating 8 mg PO Q8H PRN (Reason: nausea and vomiting) Qty: 30 0RF loperamide 2 mg capsule See Rx Instructions PO Q6H MDD 16 mg/day (8 tablets) PRN (Reason: loose stool) Qty: 30 0RF Rx Instructions: 4 mg (2 caps) PO x1, then 2 mg (1 cap) PO x1 after each loose stool famotidine 40 mg tablet 40 mg PO DAILY Qty: 30 0RF metoclopramide HCl 10 mg tablet 10 mg PO QID PRN (Reason: nausea and vomiting) Qty: 15 0RF hydrocodone-acetaminophen 5-325 mg Tablet 1 tab PO Q6H PRN (Reason: Pain) Qty: 20 0RF <Nadia Sutherland MD - Last Filed: 02/25/25 00:33> Follow Up/Referrals: Eleni Garcia PA-C [Primary Care Provider, Family Practice] <Nadia Sutherland MD - Last Filed: 02/25/25 00:33> Stand Alone Forms: My[facility] Info Instructions <Nadia Sutherland MD - Last Filed: 02/25/25 00:33>
[2025-02-24] MEDS: LACTATED RINGERS 1000 ML 1,000 ML IV (07:35)
[2025-02-24] MEDS: ONDANSETRON 2 MG/ML inj 8 MG IVP (07:39)
[2025-02-24 07:47] LABS: Lactate* 1.5 mmol/L (0.5-1.9)
[2025-02-24 07:50] LABS: Hematocrit* 45.4 % (33.0-51.0); Hemoglobin* 14.8 gm/dL (12.0-16.0); Immature Granulocytes Abs Auto 0.01 K/uL (0.00-0.30); Immature Granulocytes Pct Auto 0.2 %; Lymphocytes Absolute Auto 1.33 K/uL (0.90-2.90); Mean Corpuscular HGB Conc 33 gm/dL (32-36); Mean Corpuscular Hemoglobin 28 pg (26-34); Mean Corpuscular Volume 85 fL (80-100); RDW Coefficient of Variation % 11.9 % (11.5-15.5); Red Blood Count* 5.35 m/uL (4.00-5.20); White Blood Count* 5.97 K/uL (4.50-11.00)
[2025-02-24 07:52] LABS: Slide Review Reflex No
[2025-02-24 08:04] LABS: Albumin* 3.8 g/dL (3.3-5.0); Chloride* 106 mmol/L (96-114); Potassium* 3.7 mmol/L (3.6-5.1); Sodium* 139 mmol/L (135-149)
[2025-02-24 08:06] LABS: Blood Urea Nitrogen* 10 mg/dL (7-30); Creatinine* 0.5 mg/dL (0.5-1.5); Est. Creatinine Clearance* 52.51; Estimated Glomerular Filt Rate 104 ml/min
[2025-02-24 08:07] LABS: Alanine Aminotransferase* 91 U/L (4-35); Alkaline Phosphatase* 319 U/L (40-150); Anion Gap 9 mEq/L (7-15); Aspartate Amino Transferase* 114 U/L (12-35); Calcium* 10.1 mg/dL (8.4-10.6); Carbon Dioxide* 24 mmol/L (20-32); Glucose* 122 mg/dL (60-115); Total Protein* 6.6 g/dL (6.0-8.3)
--- NOTE | 2025-02-24 08:17 | CRLHL7_ITS ---
For Patients: As a result of the 21st Century Cures Act, medical imaging exams and procedure reports are released immediately into your electronic medical record. You may view this report before your referring provider. If you have questions, please contact your health care provider. INDICATION: NAUSEA. PANCREATITIS 1 WEEK POST ANOOP. (Sic) COMPARISON: No prior CT. Ultrasound dated 02/09/2025. TECHNIQUE: CT of the abdomen and pelvis with 75 cc of Isovue 370 intravenous contrast. Please note that all CT scans at this facility use dose modulation, iterative reconstruction, and/or weight-based dosing when appropriate to reduce radiation dose to as low as reasonably achievable. FINDINGS: ABDOMEN Liver: Normal contour. Minimal left hepatic lobe focal fatty infiltration adjacent to the intersegmental fissure. No significant focal lesion. Mild prominence of the central intrahepatic bile ducts is noted which is nonspecific. This finding has been described in the absence of bile duct obstruction. Correlation with the patient`s clinical status and laboratory findings is recommended. Patent portal veins. Patent hepatic veins. Portal veins are not uniformly enhanced on the early hepatic arterial phase study. Hepatic veins are not enhanced on this hepatic arterial phase exam. Gallbladder: Interval cholecystectomy compared to the ultrasound of 02/09/2025. Minimal fluid within the cholecystectomy surgical bed, considered to be within normal limits. There is no peripherally enhancing encapsulated fluid collection with mass effect to indicate a postoperative abscess. Common duct caliber is 10 mm, at the upper limit of normal following cholecystectomy. No intraluminal or extrinsic obstructing lesion is identified. The duct tapers normally at the level of the major ampulla. Dilatation of the common bile duct is nonspecific as, similar to the mild central intrahepatic biliary ductal dilatation described above, bile duct dilatation has been described in the absence of obstruction. Again, correlation with the patient`s clinical status and laboratory findings is recommended. Pancreas: Normal contour and attenuation. No peripancreatic inflammatory changes. No significant focal lesion. Normal main duct caliber. Spleen: Not enlarged. Incidental oval circumscribed homogeneous low-attenuation finding in the posterior spleen measuring 10 mm. Region of interest interrogation shows a Hounsfield measurement of 25 HU, just above the upper limit of normal for simple fluid (20 HU). This could be due to pseudo enhancement due to the small size of the finding which is likely a benign cyst. No routine workup or ongoing imaging surveillance is indicated for such findings per ACR white paper guidelines. Patent splenic artery and vein. Adrenal Glands: Symmetrical adrenal glands. No significant focal lesion. Kidneys: Normal bilateral renal attenuation. No significant focal lesion. Two small to characterize round circumscribed homogeneous low-attenuation finding in the posterior interpolar right renal cortex likely a benign cyst for which no further workup or ongoing imaging surveillance is indicated per ACR white paper guidelines (series 2; image 40). Punctate nonobstructing right lower pole nephrolith (4; 75). No dilatation of the intrarenal collecting systems. No ureteral stone. Nondilated ureters. Patent renal arteries and veins. Gastrointestinal tract: Normal caliber, attenuation and wall thickness of the gastrointestinal tract. Diverticulosis of the descending and sigmoid colon without associated inflammatory changes. Normal small bowel mesentery. Normal appendix. Vascular: Chronic aortoiliac atherosclerotic mural calcification. Abdominal aorta and its major proximal branches including the celiac, superior mesenteric, inferior mesenteric, renal, and bilateral common iliac arteries are patent. Patent superior mesenteric vein. Peritoneal Cavity/Retroperitoneum: No ascites. No adenopathy. PELVIS No bladder lesion is identified. No significant incidental findings related to the uterus or uterine adnexa. No significant ascites. No adenopathy. SKELETON AND BODY WALL Anterior midline epigastric subcutaneous tract consistent with a port site (2; 60). LOWER THORAX Right middle lobe and lingular pleural-based linear opacities consistent with nonspecific scar. Differential diagnostic considerations include subsegmental atelectasis. Partially included lower thoracic wall, lungs, pleural spaces and mediastinum are otherwise without significant incidental findings. IMPRESSION: 1. Interval cholecystectomy compared to the ultrasound of 02/09/2025. 2. Minimal fluid within the cholecystectomy surgical bed, considered to be within normal limits. There is no peripherally enhancing encapsulated fluid collection with mass effect to indicate a postoperative abscess. 3. Common duct caliber is 10 mm, at the upper limit of normal following cholecystectomy. No intraluminal or extrinsic obstructing lesion is identified. The duct tapers normally at the level of the major ampulla. Dilatation of the common bile duct is nonspecific as, similar to the mild central intrahepatic biliary ductal dilatation described above, bile duct dilatation has been described in the absence of obstruction. Correlation with the patient`s clinical status and laboratory findings is recommended. 4. Additional findings described in the body of the report. Please note that all CT scans at this facility use dose modulation, iterative reconstruction, and/or weight-based dosing when appropriate to reduce radiation dose to as low as reasonably achievable. Dictated by Len Tripp MD @ 02/24/2025 9:14:19 AM (Electronically Signed)
[2025-02-24 09:52] VITALS: BP 112/45; PULSE 85; RESP 18; O2SAT 92
[2025-02-24] MEDS: METOCLOPRAMIDE HCL 10 MG in 0.9 % SODIUM CHLORIDE 100 ml 100 ML 306 MG IVPB (11:07)
--- NOTE | 2025-02-24 11:15 | CRLHL7_ITS ---
For Patients: As a result of the Century Cures Act, medical imaging exams and procedure reports are released immediately into your electronic medical record. You may view this report before your referring provider. If you have questions, please contact your health care provider. Indication: Elevated bilirubin and transaminases. Status post cholecystectomy. Technique: MRCP of the abdomen performed without intravenous contrast. Reconstructed images/MIPS were created. 1.5 loyd magnet. Comparison: 02/24/2025 CT of the abdomen and pelvis Findings: Per technologist report, patient requested termination of examination prior to completion of the final sequence, a 3D SPACE sequence. No pleural effusion. Smooth hepatic contour. Postoperative changes from recent cholecystectomy. There is a small amount of nonspecific edema in the cholecystectomy operative bed without a discrete fluid collection. Mild extrahepatic and central intrahepatic biliary ductal dilation. The distal common bile duct smoothly tapers as it approaches the ampulla. No choledocholithiasis or obstructing biliary mass lesion is detected. No splenomegaly. 1 centimeter simple appearing cyst in the posterior spleen. Normal caliber of the main pancreatic duct. Normal adrenal glands. No hydronephrosis. There are few small bilateral renal cysts. Colonic diverticulosis. No focal abnormally dilated loops of bowel within the field of view. No enlarged lymph nodes are detected. No abdominal aortic aneurysm. Mild aortic atherosclerosis. There are postoperative changes in the ventral abdominal wall with a small amount of postoperative edema. There are osseous degenerative changes. Impression: Postoperative changes from recent cholecystectomy. Mild extrahepatic and central intrahepatic biliary ductal dilation, possibly within normal limits for the post cholecystectomy state. The distal common bile duct smoothly tapers as it approaches the ampulla. No choledocholithiasis or obstructing biliary mass lesion is detected. Recommend correlation with LFTs. Dictated by Marcelino Jimenez MD @ 02/24/2025 1:03:13 PM (Electronically Signed)
[2025-02-24 11:35] LABS: Bilirubin Direct* 0.8 mg/dL (0.0-0.5)
[2025-02-24 11:37] LABS: Bilirubin Total* 2.1 mg/dL (0.1-1.5)
[2025-02-24 13:39] VITALS: BP 105/49; PULSE 80; RESP 24; O2SAT 90
== END 2025-02-24 14:27 | disposition home or self-care (01) ==
PROVIDERS: Family Medicine; Emergency Provider Family Medicine; PCP Student in an Organized Health Care Education/Training Program
DX: K91.0 Vomiting following gastrointestinal surgery (principal); R19.7 Diarrhea, unspecified; F17.210 Nicotine dependence, cigarettes, uncomplicated; Z90.49 Acquired absence of other specified parts of digestive tract; Z98.890 Other specified postprocedural states
CPT/HCPCS: 36415; 74177; 74181; 80053; 80076; 83605; 83690; 85025; 86140; 96361; 96365; 96375; 99284; 99285; J2060; J2405; J2765; J7030; J7120; Q9967